=== PATIENT | male | born 1970 | race Caucasian/White ===

== ENCOUNTER → 2021-03-31 09:29 | Outpatient (CLI) | payer BC, SELFPAY ==
[2021-03-31 14:18] LABS: ALB/GLOB Ratio 1.5 RATIO (0.9-2.4); AST(SGOT) 13 U/L (15-37); Alanine Aminotransfer ALT/SGPT 22 U/L (16-61); Alkaline Phosphatase 93 U/L (45-117); Anion Gap 6 (5-15); BUN 13 mg/dL (7-18); BUN/Creat Ratio 13.1 RATIO (10-20); Calcium,Total 8.9 mg/dL (8.5-10.1); Chloride 105 mmol/L (98-107); Cholesterol 174 mg/dL (200); Creatinine, Serum 0.99 mg/dL (0.70-1.30); EST Glomerular Filtration Rate 85 mL/min (>60); Est Glom Filt Rate - Afr Amer 103 mL/min (>60); Globulin 2.7 g/dL (2.2-4.2); Glucose 90 mg/dL (74-106); High Density Lipoprotein 38 mg/dL; Potassium 4.2 mmol/L (3.5-5.1); Protein, Total 6.7 g/dL (6.4-8.2); Sodium Level 142 mmol/L (136-145); Triglycerides 88 mg/dL; Very Low Density Lipoprotein 18 mg/dL (5-40)
== END ==
PROVIDERS: PCP Family Medicine; Referring Provider Family Medicine; Visit Provider Family Medicine
DX: I10 Essential (primary) hypertension (principal)
CPT/HCPCS: 36415; 80053; 80061

== ENCOUNTER → 2022-05-05 | Outpatient (CLI) | payer BC, SELFPAY | END | disposition home or self-care (01) | PROVIDERS: PCP Family Medicine; Visit Provider Family Medicine | DX: U07.1 COVID-19 (principal) | CPT/HCPCS: 87635; U0003; U0005 ==

== ENCOUNTER → 2022-07-10 | Outpatient (CLI) | payer BC, SELFPAY ==
[2022-07-10 11:22] LABS: ALB/GLOB Ratio 1.2 RATIO (0.9-2.4); AST(SGOT) 22 U/L (15-37); Alanine Aminotransfer ALT/SGPT 42 U/L (16-61); Albumin, Serum 3.7 g/dL (3.2-5.0); Alkaline Phosphatase 70 U/L (45-117); Anion Gap 5 (5-15); BUN 12 mg/dL (7-18); BUN/Creat Ratio 11.5 RATIO (10-20); Calcium,Total 8.6 mg/dL (8.5-10.1); Chloride 108 mmol/L (98-107); Cholesterol 186 mg/dL (200); Creatinine, Serum 1.04 mg/dL (0.70-1.30); EST Glomerular Filtration Rate 80 mL/min (>60); Est Glom Filt Rate - Afr Amer 97 mL/min (>60); Globulin 3.1 g/dL (2.2-4.2); Glucose 143 mg/dL (74-106); High Density Lipoprotein 47 mg/dL; PSA,Total - Annual Screen 0.93 ng/mL (0.00-4.00); Protein, Total 6.8 g/dL (6.4-8.2); Sodium Level 139 mmol/L (136-145); Triglycerides 115 mg/dL; Very Low Density Lipoprotein 23 mg/dL (5-40)
== END | disposition home or self-care (01) ==
PROVIDERS: PCP Family Medicine; Referring Provider Family Medicine; Visit Provider Family Medicine
DX: I10 Essential (primary) hypertension (principal); Z12.5 Encounter for screening for malignant neoplasm of prostate
CPT/HCPCS: 36415; 80053; 80061; 84153; G0103

== ENCOUNTER 2022-09-24 06:19 | Day surgery (SDC) | payer BC, SELFPAY ==
[2022-09-24] VITALS (7 sets, daily range): BP systolic 104–133; BP diastolic 66–94; PULSE 68–87; RESP 16–18; TEMP 36.1–36.5; O2SAT 96–98; BMI 34.7
--- NOTE | 2022-09-24 | IMM_PTH ---
PATIENT: LEANDER FOOTE LOC: EN U#:[id number] AGE/SX: 52/M ROOM: RE09/24/[address]: Dr. Floyd Hines MD : 1970 BED: DIS: 09/24/2022 SPEC #: [id number] RECD: 09/25/22 11:34 STATUS: BETO REReji #: [id number] LEATHA: 09/24/22 00:[address]: Floyd Hines DEPT: IMMUNOHISTOCHEMISTRY RECD BY: Haylee Molina ENTERED: 09/25/22 11:35 SP TYPE: IMMUNO OTHR DR: Dr. Deric Shaikh MD Tissues: C - Perianal tissue Procedures: p16 (initial) KI-67 (add) PHYSICIAN & [place] [id number] SPECIMEN INFORMATION: Tissue Source: C ? Perianal lesion biopsy Clinical Info: Screening Specimen Number: [id number] CPT code: 39040, 02107 METHODOLOGY: Deparaffinized sections of prefer/formalin-fixed tissue or PAP/DQ stained slides are incubated with monoclonal/polyclonal antibodies/oligonucleotide probes. Localization is made via biotin free immunoperoxidase method. Appropriate controls are performed and reacted as expected. Results on target cell population are indicated in the following table: RESULTS: ANTIBODY / CLONE RESULT Block C P16 (E6H4) positive, focal, patchy Ki-67 (30-9) positive, low These tests were developed and their performance characteristics determined by [facility]. They may not have been cleared or approved by the U.S. Food and Drug Administration. The FDA has determined that such clearance or approval is not necessary. The above immunohistochemical/dualISH markers are ordered and reviewed by the Pathologist. INTERPRETATION: Josue Perianal lesion, biopsy: Focal viral cytopathic effect present. AM:rachel 09/28/2022
--- NOTE | 2022-09-24 | COLBX_PTH ---
PATIENT: LEANDER FOOTE LOC: EN U#:[id number] AGE/SX: 52/M ROOM: RE09/24/[address]: Dr. Floyd Hines MD : 1970 BED: DIS: 09/24/2022 SPEC #: [id number] RECD: 09/24/22 14:58 STATUS: BETO NURY #: [id number] LEATHA: 09/24/22 00:[address]: Floyd Hines DEPT: SURGICAL PATHOLOGY RECD BY: Demetrio Dash ENTERED: 09/24/22 14:59 SP TYPE: COLON BX OTHR DR: Dr. Deric Shaikh MD Tissues: A - Transverse colon B - Descending colon C - Ileum, NOS Procedures: Surgery Specimen Level IV HEADER OPERATION: Colonoscopy wit biopsy and polypectomy (MAC) PRE-OP DIAGNOSIS: Screening TISSUE SUBMITTED: A ? 105 cm transverse colon polyp, B ? 80 cm descending colon polyp, C ? Perianal lesion biopsy MICROSCOPIC DIAGNOSIS A. Transverse colon polyp at 105 cm, biopsy: Polypoid fragment of benign colonic mucosa. See comment. B. Descending colon polyp at 80 cm, biopsy: Focal hyperplastic change. C. Perianal lesion, biopsy: Consistent with condyloma. See comment. AM:rachel 09/25/2022 COMMENT A. Neither hyperplastic nor adenomatous change is identified. Clinical correlation is suggested. C. Results from immunohistochemistry ([id number]) for surrogate HPV marker (p16) will be reported separately. MICROSCOPIC DESCRIPTION Slides are reviewed. GROSS DESCRIPTION A - Received in fixative is one container labeled with the patient's name and designated transverse colon polyp. The specimen consists of one irregular fragment of light montoya soft tissue that measures 0.6 x 0.3 x 0.1 cm. The specimen is totally submitted in one cassette. B - Received in fixative is one container labeled with the patient's name and designated descending colon 80 cm biopsy. The specimen consists of one irregular fragment of light montoya soft tissue that measures 0.5 x 0.2 x 0.1 cm. The specimen is totally submitted in one cassette. C - Received in fixative is one container labeled with the patient's name and designated perianal lesion biopsy. The specimen consists of multiple irregular fragments of light montoya-pink soft tissue that in aggregate measure 1 x 0.3 x 0.1 cm. The specimen is totally submitted in one cassette. / AM:rachel 09/24/2022 TC: CPT: 55124 x3
[2022-09-24] MEDS: Lactated Ringers 1,000 ML 15 ML IV (07:03)
--- NOTE | 2022-09-24 07:32 | HP.PCM_ITS ---
History and Physical Date of Service:? 08/04/22 MR#: [id number] Acct: [id number] Name:? LEANDER BERNAL Rep #: [id number] : 1970 ? ? Provider: Dr. Floyd Hines MD Age/Sex:? 52/M ? ? Location: [facility] Status: Signed Intake Vital Signs ? 08/04/2209:12 Height 5 ft 11 in Weight: 247 lb D BMI 34.4 BP 131/95 H Blood Pressure Location Rt brachial Position Sitting Respiration 16 Pulse 69 Pulse Source Monitor Temp 97.8 F Temp Source Temporal Pulse Oximetry (%) 98 Oxygen Delivery Method room air Intake Visit Reasons:?SCREENING COLONOSCOPY AND LIPOMA ON NECK Chief Complaint: Colonoscopy and lipoma on neck Clinic Business Manager Required: No Is patient in pain?: No Allergies No Known Allergies Allergy (Unverified 08/04/22 09:13) Medications lisinopril 10 mg tablet 10 mg PO DAILY 08/04/22 [History Confirmed 08/04/22] PFSH Surgical History?(Updated 08/04/22 @ 09:11 by Ana Bennett) History of lithotripsy S/P thyroid surgery Social History?(Updated 08/04/22 @ 09:12 by Ana Bennett) adopted:? Yes Smoking Status:? Never smoker alcohol intake:? current alcohol intake frequency: 0-2 drinks per day substance use type:? does not use HPI HPI HPI: Patient is a 52-year-old male who presents for need to schedule screening colono scopy secondary to age.? They are referred for surgical consultation from Dr. Shaikh.? Patient has not had prior colonoscopy.? Mr. Bernal states that since he was a kid he he has experienced looser stools that then become constipation (he notes that the looser stools are much more frequent than the constipation which she only deals with 1-2 times monthly.? Of this he states there is no normal.? On hearing this history, he has been told by providers in the past that he may have irritable bowel syndrome.? He states he does not recall ever undergoing stool studies or further investigation.? He does communicate that when he has tried to experiment with his diet (he notes that his son is diagnosed with celiac's disease) he has not noticed a change in response to either lower gluten content or restricting dairy.? Patient has no personal history of colon cancer, inflammatory bowel disease, or diverticulitis. They describe their bowel habits as occurring regularly with the consistency noted above.? They have approximately 1-2 per day and spend roughly 10 minutes on the toilet without significant straining.? They have not noticed recent bleeding or dark stools.? They do not regularly take fiber supplements, but states he is making intentional efforts to include more dietary fiber by eating more vegetables than meat.? He states this is also motivated by desire to improve his kidney health and lose some weight.? He has noticed a weight gain of about 20 pounds since 2019 (he notes he initially gained 40 pounds, lost it, then added 20 back).? He attributes this to being more sedentary and enjoying food. Patient has no known family history of colon cancer, inflammatory bowel disease, or diverticulitis, but notes that he is adopted.? ? The patient is not prescribed anticoagulants/blood thinners. Relevant prior abdominal surgical history includes: None applicable Patient does not have a significant history of GERD/heartburn?he states that he had some of the symptoms many years ago when he worked in [employer], but has not noticed them since leaving that field of work. Patient also presents for neck lipoma.? This was first noticed 8 to 10 years ago.? He states that the size of this lipoma has remained relatively constant over the last couple of years.? He communicates that Dr. Shaikh is offered surgical evaluation in the past, but this was declined due to absence of symptoms.? He remarks that in the last year he has felt more cricks in that part of his neck than before and therefore requests evaluation for removal.? He denies any other areas of concern or new growths. ROS General General: Yes weight change; No appetite, fatigue, colon cancer, breast cancer or weakness Additional Details: Weight gain HEENT HEENT: No difficulty swallowing, eye injury, eye surgery, swollen glands or hoarseness Endo Endocrine: No thyroid disease, diabetes mellitus, thyroid cancer, Hair loss, heat intolerance or cold intolerance Skin Skin: No rash or changing moles Breast Breast: No left breast lump, right breast lump, nipple discharge, breast pain, abnormal mammogram, abnormal US or breast enlargement Musc Musculoskeletal: Yes back problems; No arthritis, rheumatoid arthritis, gout or joint pain Cardio Cardiovascular: Yes high blood pressure; No murmur, pacemaker, heart disease, atrial fibrillation, heart attack, heart stent, palpitations, shortness of breat with exertion or chest pain Psych Psychiatric: No depression, anxiety or hearing voices Resp Respiratory: No shortness of breath, Yes sleep apnea, Yes cough, No COPD, No asthma, No emphysema and No wheezing Gastro Gastrointestinal: No abdominal pain, No nausea or vomiting, No diarrhea, No constipation, No blood in stool, No acid reflux, No hemorrhoids, No ulcers, No gallbladder problem and No black,tarry stools [place] Hematologic: No blood thinners, No blood disorders, No bleeding, No anemia and No blood clots Neuro Neurologic: No system reviewed and no additional complaints, except as documented, No as per HPI, No abnormal gait, No abnormal hearing, No abnormal movements, No abnormal speech, No behavioral changes, No burning sensations, No confusion, No convulsions, No disequilibrium, No dizziness, No localized weakness, No frequent falls, No headache(s), No lack of coordination, No loss of vision, No memory loss, No numbness, No other visual disturbances, No radicular pain, No restless legs, No sensory deficit, No syncope, No tingling, No tremor(s), No weakness and No other Exam Const General: cooperative, healthy appearing, comfortable and no acute distress Orientation: alert, awake and oriented x3 Neck Other: Large (estimated 5 to 6 cm in diameter), semimobile subcutaneous mass that is nontender to palpation. Resp Effort & Inspection: normal respiratory effort Auscultation: no rales, no rhonchi and no wheezes Cardio Rate: regular rate Rhythm: regular rhythm Heart Sounds: S1 normal and S2 normal GI Inspection: obesity, no scars and no striae Palpation: soft, no hepatosplenomegaly, no hernias and nontender Assessment and Plan Assessment and Plan (1) Screening for colon cancer: ?Status:?Acute ?Comment: This is a 52-year-old male who is referred for screening colonoscopy given his age.? He reports a lifelong history of alternating between looser stools and constipation.? Subjectively he has been told by past providers this may represent a diagnosis of irritable bowel syndrome, but has not undergone any formal work-up for this issue.? Otherwise denies any acute changes to his GI function and simply presents for a maintenance evaluation.? Procedure was described in detail?including prep and need for a customer service driver.? Patient expresses understanding of all this information. ?Plan: Plan will be to complete colonoscopy on first mutually available date under local MAC.? Pre-procedure prep discussed and paper instructions provided.? Patient is also made aware that he will need to have a customer service driver with him the day of the procedure. (2) Subcutaneous mass of neck: ?Status:?Acute ?Comment: Patient with a moderately large subcutaneous mass on the right posterior aspect of his neck.? Is largely asymptomatic and has remained relatively stable in size, but he notes some occasional discomfort in the morning after sleeping on that side.? Therefore, he requests removal.? By exam, this appears to represent a lipoma.? Given its size, I recommend removal in the operating room for the benefit of some sedation to enhance his comfort. ?Plan: Excision of subcutaneous mass under local MAC.? Patient states that he will be traveling to [place] August 18 through 2021.? Given the current proximity to this travel time, we will plan to postpone any intervention until after he returns. I have examined the patient and the H&P has been reviewed. There are no clinical changes since date of exam. He confirms that he completed his bowel prep successfully and that his output is now clear. Neither he nor spouse have any questions regarding today's procedure. Plan to proceed to the endoscopy suite for screening colonoscopy under local MAC as described above.
--- NOTE | 2022-09-24 08:34 | OP.COLON_ITS ---
Patient Name: Ken Bernal Procedure Date: 09/24/2022 7:27 AM Date of : 1970 Age: 52 Procedure: Colonoscopy Indications: Screening for colorectal malignant neoplasm Providers: Floyd Hines MD Medicines: Monitored Anesthesia Care Patient Profile: Refer to note in patient chart for documentation of history and physical. Last Colonoscopy: none. The patient's first colonoscopy is today. Complications: No immediate complications. Estimated blood loss: None. Procedure: Pre-Anesthesia Assessment: - The heart rate, respiratory rate, oxygen saturations, blood pressure, adequacy of pulmonary ventilation, and response to care were monitored throughout the procedure. After I obtained informed consent, the scope was passed under direct vision. Throughout the procedure, the patient's blood pressure, pulse, and oxygen saturations were monitored continuously. The colonoscope was introduced through the anus and advanced to the cecum, identified by appendiceal orifice and ileocecal valve. The appendiceal orifice was photographed. The colonoscopy was performed without difficulty. The patient tolerated the procedure well. The quality of the bowel preparation was adequate to identify polyps. Scope In: 7:39:45 AM Scope Withdrawal Time 0 hours 34 minutes 24 seconds Scope Out: 8:22:46 AM Total Procedure Duration Time 0 hours 43 minutes 1 second Findings: Two semi-sessile polyps were found in the descending colon and transverse colon. The polyps were 3 to 5 mm in size. Biopsies were taken with a cold forceps for histology. Estimated blood loss was minimal. Localized pseudopolyps were found at the anus. The polyp was removed with a hot snare. Resection and retrieval were complete. The perianal and digital rectal examinations were normal. Pertinent negatives include normal sphincter tone. Impression: - Two 3 to 5 mm polyps in the descending colon and in the transverse colon. Biopsied. - Pseudopolyps at the anus. Resected and retrieved. Recommendation: - Discharge patient to home (via wheelchair). - Resume regular diet today. - Continue present medications. - Await pathology results. - Repeat colonoscopy date to be determined after pending pathology results are reviewed for surveillance based on pathology results. - Telephone my office for pathology results in 1 week. Procedure Code(s): --- Professional --- 85415, Colonoscopy, flexible; with removal of tumor(s), polyp(s), or other lesion(s) by snare technique 05957, 59, Colonoscopy, flexible; with biopsy, single or multiple Diagnosis Code(s): --- Professional --- Z12.11, Encounter for screening for malignant neoplasm of colon D12.4, Benign neoplasm of descending colon D12.3, Benign neoplasm of transverse colon (hepatic flexure or splenic flexure) K51.40, Inflammatory polyps of colon without complications CPT copyright 2017 [employer]. All rights reserved. The codes documented in this report are preliminary and upon cpc coder review may be revised to meet current compliance requirements. Floyd Hines MD 09/24/2022 8:34:06 AM This report has been signed electronically. Number of Addenda: 0 Note Initiated On: 09/24/2022 7:27 AM
--- NOTE | 2022-09-24 08:35 | OP.CCLET_ITS ---
09/24/2022 Eliel Shaikh [address] [place] [address] Re : Colonoscopy procedure for Ken Bernal Dear Dr. Shaikh This procedure was performed on August. My impressions and recommendations are as follows: Impressions : - Two 3 to 5 mm polyps in the descending colon and in the transverse colon. Biopsied. - Pseudopolyps at the anus. Resected and retrieved. Recommendations : - Discharge patient to home (via wheelchair). - Resume regular diet today. - Continue present medications. - Await pathology results. - Repeat colonoscopy date to be determined after pending pathology results are reviewed for surveillance based on pathology results. - Telephone my office for pathology results in 1 week. My findings are described in the full procedure note, which is enclosed. If I can be of further assistance, please feel free to contact me at Doctor phone number(s): , Work: . Sincerely, Floyd Hines MD 09/24/2022 8:34:06 AM This report has been signed electronically.
== END 2022-09-24 09:08 | disposition home or self-care (01) ==
LOC: EN 06:20 → AC 06:23
PROVIDERS: PCP Family Medicine; Referring Provider Family Medicine; Visit Provider Surgery
PROC: 0DJD8ZZ Inspection of Lower Intestinal Tract, Via Natural or Artificial Opening Endoscopic (ICD-10-PCS; CPT 45378; principal; 2022-09-24 07:25)
DX: Z12.11 Encounter for screening for malignant neoplasm of colon (principal); K51.40 Inflammatory polyps of colon without complications; R22.1 Localized swelling, mass and lump, neck; D12.3 Benign neoplasm of transverse colon; D12.4 Benign neoplasm of descending colon
CPT/HCPCS: 45380; 45385; 88305; 88341; 88342; J7120

== ENCOUNTER 2022-11-18 11:50 | Day surgery (SDC) | payer BC, SELFPAY ==
[2022-11-18] MEDS: Lactated Ringers 1,000 ML 15 ML IV (12:28)
[2022-11-18 12:29] VITALS: BP 130/80; PULSE 84; RESP 18; TEMP 36.4; O2SAT 98; BMI 35.8
--- NOTE | 2022-11-18 12:31 | HP.PCM_ITS ---
History and Physical Date of Service:? 08/04/22 MR#: [id number] Acct: [id number] Name:? LEANDER BERNAL Rep #: [id number] : 1970 ? ? Provider: Dr. Floyd Hines MD Age/Sex:? 52/M ? ? Location: [facility] Status: Signed Intake Vital Signs ? 08/04/2209:12 Height 5 ft 11 in Weight: 247 lb D BMI 34.4 BP 131/95 H Blood Pressure Location Rt brachial Position Sitting Respiration 16 Pulse 69 Pulse Source Monitor Temp 97.8 F Temp Source Temporal Pulse Oximetry (%) 98 Oxygen Delivery Method room air Intake Visit Reasons:?SCREENING COLONOSCOPY AND LIPOMA ON NECK Chief Complaint: Colonoscopy and lipoma on neck Vulcan Crewmember Required: No Is patient in pain?: No Allergies No Known Allergies Allergy (Unverified 08/04/22 09:13) Medications lisinopril 10 mg tablet 10 mg PO DAILY 08/04/22 [History Confirmed 08/04/22] PFSH Surgical History?(Updated 08/04/22 @ 09:11 by Ana Bennett) History of lithotripsy S/P thyroid surgery Social History?(Updated 08/04/22 @ 09:12 by Ana Bennett) adopted:? Yes Smoking Status:? Never smoker alcohol intake:? current alcohol intake frequency: 0-2 drinks per day substance use type:? does not use HPI HPI HPI: Patient is a 52-year-old male who presents for need to schedule screening colono scopy secondary to age.? They are referred for surgical consultation from Dr. Shaikh.? Patient has not had prior colonoscopy.? Mr. Bernal states that since he was a kid he he has experienced looser stools that then become constipation (he notes that the looser stools are much more frequent than the constipation which she only deals with 1-2 times monthly.? Of this he states there is no normal.? On hearing this history, he has been told by providers in the past that he may have irritable bowel syndrome.? He states he does not recall ever undergoing stool studies or further investigation.? He does communicate that when he has tried to experiment with his diet (he notes that his son is diagnosed with celiac's disease) he has not noticed a change in response to either lower gluten content or restricting dairy.? Patient has no personal history of colon cancer, inflammatory bowel disease, or diverticulitis. They describe their bowel habits as occurring regularly with the consistency noted above.? They have approximately 1-2 per day and spend roughly 10 minutes on the toilet without significant straining.? They have not noticed recent bleeding or dark stools.? They do not regularly take fiber supplements, but states he is making intentional efforts to include more dietary fiber by eating more vegetables than meat.? He states this is also motivated by desire to improve his kidney health and lose some weight.? He has noticed a weight gain of about 20 pounds since 2019 (he notes he initially gained 40 pounds, lost it, then added 20 back).? He attributes this to being more sedentary and enjoying food. Patient has no known family history of colon cancer, inflammatory bowel disease, or diverticulitis, but notes that he is adopted.? ? The patient is not prescribed anticoagulants/blood thinners. Relevant prior abdominal surgical history includes: None applicable Patient does not have a significant history of GERD/heartburn?he states that he had some of the symptoms many years ago when he worked in [employer], but has not noticed them since leaving that field of work. Patient also presents for neck lipoma.? This was first noticed 8 to 10 years ago.? He states that the size of this lipoma has remained relatively constant over the last couple of years.? He communicates that Dr. Shaikh is offered surgical evaluation in the past, but this was declined due to absence of symptoms.? He remarks that in the last year he has felt more cricks in that part of his neck than before and therefore requests evaluation for removal.? He denies any other areas of concern or new growths. ROS General General: Yes weight change; No appetite, fatigue, colon cancer, breast cancer or weakness Additional Details: Weight gain HEENT HEENT: No difficulty swallowing, eye injury, eye surgery, swollen glands or hoarseness Endo Endocrine: No thyroid disease, diabetes mellitus, thyroid cancer, Hair loss, heat intolerance or cold intolerance Skin Skin: No rash or changing moles Breast Breast: No left breast lump, right breast lump, nipple discharge, breast pain, abnormal mammogram, abnormal US or breast enlargement Musc Musculoskeletal: Yes back problems; No arthritis, rheumatoid arthritis, gout or joint pain Cardio Cardiovascular: Yes high blood pressure; No murmur, pacemaker, heart disease, atrial fibrillation, heart attack, heart stent, palpitations, shortness of breat with exertion or chest pain Psych Psychiatric: No depression, anxiety or hearing voices Resp Respiratory: No shortness of breath, Yes sleep apnea, Yes cough, No COPD, No asthma, No emphysema and No wheezing Gastro Gastrointestinal: No abdominal pain, No nausea or vomiting, No diarrhea, No constipation, No blood in stool, No acid reflux, No hemorrhoids, No ulcers, No gallbladder problem and No black,tarry stools [place] Hematologic: No blood thinners, No blood disorders, No bleeding, No anemia and No blood clots Neuro Neurologic: No system reviewed and no additional complaints, except as documented, No as per HPI, No abnormal gait, No abnormal hearing, No abnormal movements, No abnormal speech, No behavioral changes, No burning sensations, No confusion, No convulsions, No disequilibrium, No dizziness, No localized weakness, No frequent falls, No headache(s), No lack of coordination, No loss of vision, No memory loss, No numbness, No other visual disturbances, No radicular pain, No restless legs, No sensory deficit, No syncope, No tingling, No tremor(s), No weakness and No other Exam Const General: cooperative, healthy appearing, comfortable and no acute distress Orientation: alert, awake and oriented x3 Neck Other: Large (estimated 5 to 6 cm in diameter), semimobile subcutaneous mass that is nontender to palpation. Resp Effort & Inspection: normal respiratory effort Auscultation: no rales, no rhonchi and no wheezes Cardio Rate: regular rate Rhythm: regular rhythm Heart Sounds: S1 normal and S2 normal GI Inspection: obesity, no scars and no striae Palpation: soft, no hepatosplenomegaly, no hernias and nontender Assessment and Plan Assessment and Plan (1) Screening for colon cancer: ?Status:?Acute ?Comment: This is a 52-year-old male who is referred for screening colonoscopy given his age.? He reports a lifelong history of alternating between looser stools and constipation.? Subjectively he has been told by past providers this may represent a diagnosis of irritable bowel syndrome, but has not undergone any formal work-up for this issue.? Otherwise denies any acute changes to his GI function and simply presents for a maintenance evaluation.? Procedure was described in detail?including prep and need for a driver material handler.? Patient expresses understanding of all this information. ?Plan: Plan will be to complete colonoscopy on first mutually available date under local MAC.? Pre-procedure prep discussed and paper instructions provided.? Patient is also made aware that he will need to have a driver material handler with him the day of the procedure. (2) Subcutaneous mass of neck: ?Status:?Acute ?Comment: Patient with a moderately large subcutaneous mass on the right posterior aspect of his neck.? Is largely asymptomatic and has remained relatively stable in size, but he notes some occasional discomfort in the morning after sleeping on that side.? Therefore, he requests removal.? By exam, this appears to represent a lipoma.? Given its size, I recommend removal in the operating room for the benefit of some sedation to enhance his comfort. ?Plan: Excision of subcutaneous mass under local MAC.? Patient states that he will be traveling to [place] August 18 through 2021.? Given the current proximity to this travel time, we will plan to postpone any intervention until after he returns. I have examined the patient and the H&P has been reviewed. There are no clinical changes since date of exam. He confirms that the right subcutaneous posterior neck mass has remained stable in size and has not exhibited any symptoms. He is just eager to have it removed after we have required several rescheduling's of today's procedure. We did review post procedure wound care expectations and follow-up. All questions were taken from patient and the spouse. Plan to proceed to the operating room for excision of right posterior neck lipoma under MAC as described above.
[2022-11-18] MEDS: Cefazolin 2 GM in 0.9% Normal Saline 100 ML IV (13:05)
--- NOTE | 2022-11-18 13:20 | LIP_PTH ---
PATIENT: LEANDER FOOTE LOC: [facility] [place] U#:[id number] AGE/SX: 52/M ROOM: RE11/18/[address]: Dr. Floyd Hines MD : 1970 BED: DIS: 11/18/2022 SPEC #: [id number] RECD: 11/18/22 16:36 STATUS: BETO NURY #: [id number] LEATHA: 11/18/22 13:[address]: Floyd Hines DEPT: SURGICAL PATHOLOGY RECD BY: Arabella Chambers ENTERED: 11/19/22 12:29 SP TYPE: LIPOMA OTHR DR: Dr. Deric Shaikh MD Tissues: Soft tissues, NOS Procedures: Surgery Specimen Level III HEADER OPERATION: Excision lipoma, posterior neck PRE-OP DIAGNOSIS: Right posterior neck lipoma TISSUE SUBMITTED: Right posterior neck lipoma MICROSCOPIC DIAGNOSIS Right posterior neck lipoma, excision: Consistent with fibrolipoma. SJ:rachel 11/20/2022 MICROSCOPIC DESCRIPTION Slides are reviewed. GROSS DESCRIPTION Received in fixative is one container labeled with the patient's name and designated right posterior neck lipoma. The specimen consists of a lobulated piece of yellow adipose tissue measuring 5.5 x 4 x 2.5 cm. Sections reveal yellow adipose cut surfaces without area of hemorrhage, necrosis or cystic degeneration. Co Founder & Ceo sections are submitted in six cassettes. / SJ:rg 11/19/2022 TC:1 CPT: 76982
--- NOTE | 2022-11-18 14:44 | OP.PCM_ITS ---
Report of Operation Date of Procedure: 11/18/22 Pre-Operative Diagnosis: Right posterior neck lipoma Post-Operative Diagnosis: Same Surgery/Procedure Performed:: Excision of right posterior neck lipoma under local MAC Description of Surgical Findings:: ? Neck lipoma with multiple adhesions to surrounding muscle and subfascial component to deep aspect Surgeon: Floyd Hines mechanical maintenance: Lynne Dale Anesthesiologist: Jimmy Malone Specimen's removed: Right posterior neck lipoma Estimated Blood Loss (mL): 50 Description of Procedure: After appropriate identification the preoperative holding area patient was brought to the operating room where he was positioned in a left lateral decubitus position. There he was administered a local MAC. Preoperative antibiotics were infused. His posterior neck was prepped and draped in usual sterile fashion. A formal timeout followed to confirm both patient and procedure. I then made a transverse incision 4.5 cm long along the mid aspect of the patient's lipomatous mass. This was carried deeply through the tissue with use of electrocautery to maintain hemostasis as we proceeded. I then visualized the lipomatous subcutaneous mass and used a combination of sharp and blunt dissection to free this mass from the surrounding soft tissue. Selective electrocautery was used to maintain hemostasis. In addition to the MAC anesthetic by anesthesia, local anesthetic was used to try to maintain patient's comfort with a total volume of 27 mL 0.25% bupivacaine plain. As the lipomatous mass was being elevated from the deeper structures the majority of the mass resided above the fascia, however there was a small tail that did penetrate the fascia and was bluntly teased away from these deeper fibers. Mass was then completely extirpated and passed off the operative field for pathology. The resulting cavity was inspected for hemostasis and was found to be largely intact aside from a few isolated skin bleeders which were promptly addressed with electrocautery. The cavity was then closed in layers to plicate the space deeply and approximate the deep dermal tissues using 2-0 and 3-0 Vicryl, respectively. Lastly a third layer was performed in a subcuticular fashion using 4-0 Monocryl. Steri-Strips and dressing were applied and the patient's sedation was lightened and he was transferred to the PACU bed for his ongoing care. Complications None
[2022-11-18] MEDS: Bupivacaine 0.25% 30 ML Vial (14:50)
--- NOTE | 2022-11-18 14:50 | DCINST_ITS ---
Discharge Instructions Diet Discharge Diet: No restrictions Activity Discharge Activity: May Not Drive (No driving while using narcotic pain medication or if it is difficult to turn head to check blind spots) May shower in (days): 2 Ice area for (Minutes): 20 Dressing / Incision Call your doctor if your incision/area has: Continuous Slow Oozing, Sudden Increased Bleeding, Increased Pain/ Swelling, Increased Redness and Foul Smelling Discharge Call your doctor if you observe: Fever of 101 or Higher Remove Dressing in: 2 days Cleanse incision/area with: Soap & Water Follow Up Care Please Follow Up With: Floyd Hines MD When: 7 days postop Test Results: Test results from this visit will be discussed in further detail at your follow- up appointment, if applicable. Discharge Plan Admission Primary Reason for Your Visit: Removal of right posterior neck lipoma Attending Provider: Floyd Hines Primary Care Provider: Eliel Shaikh Discharge Orders/Prescriptions Prescriptions: New oxycodone 5 mg tablet 5 mg PO Q6H PRN (Reason: pain) 5 Days Qty: 14 0RF Continued lisinopril 10 mg tablet 10 mg PO QHS Referrals / Follow Up: Eliel Shaikh MD [Primary Care Provider] - Disposition Disposition (needs filled in before D/C Order can be placed): Home, Self Care
[2022-11-18 15:03] VITALS: BP 128/74; BP 130/80; PULSE 82; RESP 18; TEMP 36.1; O2SAT 95
[2022-11-18 15:05] VITALS: BP 105/65; BP 130/80; PULSE 77; RESP 18; O2SAT 95
[2022-11-18 15:11] VITALS: BP 102/61; BP 130/80; PULSE 76; RESP 18; O2SAT 95
[2022-11-18 15:24] VITALS: BP 102/74; BP 130/80; PULSE 72; RESP 18; TEMP 35.8; O2SAT 94
[2022-11-18 16:10] VITALS: BP 123/89; BP 130/80; PULSE 75; RESP 16; TEMP 36.6; O2SAT 96
== END 2022-11-18 16:13 | disposition home or self-care (01) ==
LOC: SDC 11:51 → AC 11:52
PROVIDERS: PCP Family Medicine; Referring Provider Surgery; Visit Provider Surgery
PROC: (CPT 38500; principal; 2022-11-18 13:05)
DX: D17.0 Benign lipomatous neoplasm of skin and subcutaneous tissue of head, face and neck (principal); I10 Essential (primary) hypertension; R05.3 Chronic cough; G47.30 Sleep apnea, unspecified
CPT/HCPCS: 21556; 88304; J2405

== ENCOUNTER 2022-12-12 13:16 | Emergency (ER) | payer BC, SELFPAY ==
[2022-12-12 13:17] VITALS: BP 155/105; PULSE 76; RESP 15; TEMP 37; O2SAT 99; BMI 36.1
--- NOTE | 2022-12-12 13:27 | CT_ITS ---
STUDY: CT ABDOMEN AND PELVIS WITHOUT CONTRAST REASON FOR EXAM: Male, 52 years old. Pain RADIATION DOSAGE (If Supplied By Facility): CTDIvol = ( 22.6 ) mGy, DLP = ( 1208.46 ) mGycm TECHNIQUE: Transaxial images were obtained from the dome of the diaphragm to the symphysis pubis without oral contrast, and without intravenous contrast. Sagittal and coronal images were reconstructed. Individualized dose optimization techniques were used for this CT. COMPARISON: None. FINDINGS: The visualized lung bases are unremarkable. The visualized portions of the heart are within normal limits. There is decreased attenuation of the liver consistent with steatosis. Normal gallbladder and extrahepatic biliary system. Normal spleen. 2 cm subtle area of decreased attenuation within the neck of the pancreas which may represent a pancreatic mass. Follow-up pancreas protocol CT is recommended. Normal bilateral adrenal glands. Multiple nonobstructing stones in the right kidney. 3 mm obstructing stone at the right ureterovesical junction with mild ureteral dilatation and hydronephrosis. Normal left kidney. Normal visualized stomach. Normal small intestine. Normal colon. The appendix is visualized and appears normal. Normal abdominal aorta. Normal inferior vena cava. Normal retroperitoneum. Normal urinary bladder. Bilateral inguinal hernias containing fat. Normal osseous structures. CT/Abdomen/Pelvis without Cont IMPRESSION: 1. 3 mm obstructing stone at the right ureterovesical junction with mild ureteral dilatation and hydronephrosis. 2. Fatty infiltration of the liver. 3. Questionable mass in the neck of the pancreas and correlation with follow-up pancreas protocol CT is recommended. Electronically Signed: Erik Lao MD at 14:16 EST ,
--- NOTE | 2022-12-12 13:28 | EDS_ITS ---
HPI History of Present Illness Chief Complaint: Flank Pain Detail of Chief Complaint: Right flank pain Informant: patient Onset/Context/Timing Current Severity: 05/08 Narrative Narrative: Patient presents to the emergency department with a chief complaint of right- sided flank pain that started this morning and initially was mild. Around noon he started having severe pain to the right side that radiates to the front of the abdomen and anterior right thigh. Patient states that he has history of kidney stones and feels like he may be passing a stone. Patient states that he will occasionally pass some small stones on his own but has not had to have any type of intervention for kidney stone for over 10 years. Patient denies any fevers. He denies urinary symptoms. He denies hematuria. Patient took an oxycodone at home and currently rates his pain a 6 out of 10. Prior similar symptoms: Yes PFSH PFSH Medical History Alcohol use Chronic cough Current nicotine use Hypertension Kidney stones Wears glasses Home Medications lisinopril 10 mg tablet 10 mg PO QHS 08/04/22 [History Last Taken 11/17/22 23:55] oxycodone 5 mg tablet 5 mg PO Q6H PRN pain 5 days #14 tabs 11/18/22 [Rx Last Taken Unknown] Allergy/AdvReac Type Severity Reaction Status Date / Time No Known Allergies Allergy Verified 12/12/22 13:19 Surgical History History of colonoscopy History of lithotripsy S/P thyroid surgery Social History adopted: Yes Smoking Status: Current every day smoker tobacco type: cigars and smokeless tobacco alcohol intake: current alcohol intake frequency: 0-2 drinks per day substance use type: does not use ROS ROS ED Review of Systems ROS Unobtainable: other Constitutional Constitutional ED: Reports lethargy; Denies chills, fever(s), sweats or weight loss Eyes Eyes: Denies blurry vision, change in vision or diplopia ENT ENT ED: Denies rhinorrhea or sore throat Cardiovascular Cardiovascular: Denies chest pain, orthopnea or racing heartbeat Respiratory/Chest Respiratory/Chest: Denies cough, dyspnea, dyspnea on exertion, orthopnea or sputum Gastrointestinal Gastrointestinal: Reports abdominal pain and nausea; Denies diarrhea or vomiting Genitourinary Genitourinary ED: Denies dysuria, hematuria or urinary frequency Musculoskeletal Musculoskeletal: Reports back pain; Denies arthralgias, myalgias or neck pain Integumentary Denies abscess, Abrasions or rash Neurologic Neurologic: Denies headache(s) or weakness Psychiatric Psychiatric: Denies anxiety, depression or suicidal thoughts Endocrine Endocrinology: Denies polydipsia, polyphagia or polyuria Hematologic/Lymphatic Hematologic/Lymphatic: Denies easy bleeding, easy bruising or lymphadenopathy Allergic/Immunologic Allergic/Immunologic ED: Denies mouth swelling, tongue swelling or urticaria EXAM Physical Exam Const Vital Signs: 12/12/22 13:17 Temperature 98.6 F Temperature Source Temporal Pulse Rate 76 Respiratory Rate 15 Blood Pressure 155/105 H Blood Pressure Mean 121 Pulse Ox 99 Oxygen Delivery Method Room Air Positive well nourished and well developed General Appearance ED: well developed and NAD HEENT Reports TM's clear and moist mucous membranes normocephalic and atraumatic; Negative for trauma or tenderness Tympanic Membrane ED: Yes TM's clear Eyes PERRL and EOMs intact bilaterally General Eye ED: Negative for pale conjunctiva or scleral icterus Neck no lymphadenopathy, supple and no JVD General: Negative for tenderness Chest Wall inspection of chest normal and palpation of chest normal Chest: Negative for tenderness Resp normal respiratory effort and clear to auscultation bilaterally Effort and Inspection: Negative for respiratory distress or pain with movement Auscultation: Negative for rhonchi, wheezes or diminished lung sounds Cardio regular rate, regular rhythm, S1 normal heart sound, S2 normal heart sound and no murmurs Peripheral Pulses: pulses 2+ throughout GI normal to inspection, nondistended, normoactive bowel sounds, soft to palpation, non-tender, non-distended and no masses Back/Spine no thoracic nor lumbar tenderness Back/Spine Narrative: Patient has CVA tenderness on the right. Extremity normal to inspection General Extremety ED: Negative for edema General Extremity: Negative for edema Neuro oriented x3, CN's II-XII intact bilaterally, no sensory deficits noted and gait normal Sensorium / Orientation: awake, alert, oriented to person, oriented to place and oriented to time Motor Exam: strength 5/5 throughout and strength abnormal Psych mental status grossly normal Skin no rashes or lesions noted and no wounds MDM MDM MDM Narrative Medical decision making narrative: IV line established on arrival. Patient was ordered Toradol, Zofran, and 4 mg of morphine. In the differential would be kidney stone versus musculoskeletal back pain versus less likely AAA. Suspicion for UTI low. Patient had lab work ordered as well as urinalysis and a CT of the abdomen pelvis without contrast. Lab work-up unremarkable. Urinalysis showed 25-50 WBCs but no bacteria and negative for nitrites. CT scan did confirm a 3 mm obstructing stone at the right UVJ with mild ureteral dilatation. CT also noted concern for pancreatic neck mass and recommended dedicated CT imaging of the pancreas to evaluate further. I did obtain a CT scan of the pancreas with IV contrast which radiology then subsequently read as normal. While in the department the patient did pass his kidney stone. Patient is currently pain-free and feeling well. Patient will be discharged to home with referral to urology for follow-up. Lab Data Attestation: I reviewed the patient's lab results. Labs: Laboratory Results - last 24 hr 12/12/22 12/12/22 12/12/22 13:35 13:35 14:33 WBC 5.0 RBC 5.44 Hgb 15.8 Hct 47.3 MCV 86.9 MCH 29.0 MCHC 33.4 RDW Std Deviation 40.2 RDW Coeff of Romina 12.8 Plt Count 176 MPV 11.3 Immature Gran % (Auto) 0.400 Neut % (Auto) 69.3 Lymph % (Auto) 20.0 [place] % (Auto) 8.3 Eos % (Auto) 1.0 Baso % (Auto) 1.0 Absolute Neuts (auto) 3.4 Absolute Lymphs (auto) 0.99 Nucleated RBC % 0 Sodium 138 Potassium 3.8 Chloride 105 Carbon Dioxide 28.0 Anion Gap 5 BUN 10 Creatinine 0.97 Estim Creat Clear Calc 91.11 Est GFR (MDRD) Af Amer 106 Est GFR (MDRD) Non-Af 87 BUN/Creatinine Ratio 10.3 Glucose 126 H Calcium 9.0 Urine Color Yellow Urine Clarity Clear Urine pH 7.0 Ur Specific Lyle 1.010 Urine Protein 15 H Urine Glucose (UA) Normal Urine Ketones Negative Urine Occult Blood 150 H Urine Nitrite Negative Urine Bilirubin Negative Urine Urobilinogen Normal Ur Leukocyte Esterase 100 H Urine RBC 0-5 SEEN Urine WBC 25-50 SEEN Ur Squamous Epith Cells 0 SEEN Urine Bacteria 0 SEEN Urine Mucus 0 SEEN Radiography Diagnostic Testing: Clinical Impression(s) from Imaging Studies Abdomen/Pelvis CT 12/12/22 13:27 IMPRESSION: 1. 3 mm obstructing stone at the right ureterovesical junction with mild ureteral dilatation and hydronephrosis. 2. Fatty infiltration of the liver. 3. Questionable mass in the neck of the pancreas and correlation with follow-up pancreas protocol CT is recommended. Electronically Signed: Erik Lao MD at 14:16 EST Reading Location ID and State: [id number] / [employer] Tel , Service support , Abdomen CT 12/12/22 14:53 IMPRESSION: 1. Contrast enhanced images do not confirm pancreatic mass as suggested on prior CT. 2. Multiple nonobstructing right renal stones with mild hydronephrosis as seen earlier. Electronically Signed: Erik Lao MD at 16:03 EST Reading Location ID and State: [id number] / [employer] Tel , Service support , Discharge Plan Triage Chief Complaint: Flank Pain ED Provider: Eri Jarrett Dx/Rx/DC Orders Clinical Impression: Urolithiasis Instructions: ED Kidney Stone w/ Colic Prescriptions: No Action lisinopril 10 mg tablet 10 mg PO QHS oxycodone 5 mg tablet 5 mg PO Q6H PRN (Reason: pain) 5 Days Qty: 14 0RF Primary Care Provider: Eliel Shaikh Referrals: Eliel Shaikh MD [Primary Care Provider] - Yung Spencer MD [Med Staff - Active Staff] - As Needed Disposition Disposition: Home, Self Care
[2022-12-12] MEDS: Ketorolac 15 MG/ML Vial IV (13:35)
[2022-12-12] MEDS: Ondansetron 4 MG/2 ML Vial IV (13:35)
[2022-12-12] MEDS: Morphine 4 MG/ML Syringe IV (13:36)
[2022-12-12] MEDS: 0.9% Normal Saline 1,000 ML 125 ML IV (13:37)
[2022-12-12 13:43] LABS: Absolute Lymphocyte Count 0.99 X10^3/uL (0.83-4.51); Absolute Neutrophil Count 3.4 X10^3/uL (2.0-7.7); Basophil# 0.05 X10^3/uL; Eosinophil# 0.05 X10^3/uL; Hematocrit 47.3 % (40-54); Hemoglobin 15.8 g/dL (13.0-16.5); Lymphocyte # 0.99 X10^3/ul (0.83-4.51); Mean Corp Hgb Conc 33.4 g/dL (32-36); Mean Corpuscular Volume 86.9 fL (80-94); Mean Platelet Vol. 11.3 fl (6.2-12.0); Monocyte# 0.41 X10^3/uL; Monocyte% 8.3 % (0-10); NRBC Flagged by Analyzer 0 % (0-5); Neutrophil # 3.44 X10^3/uL (2.7-7.7); Neutrophil % 69.3 % (47-70); Platelet Count 176 K/mm3 (150-450); RBC Distribution Width CV 12.8 % (11.6-14.6); RBC Distribution Width SD 40.2 fl (35.1-43.9); Red Blood Count 5.44 M/mm3 (4.6-6.2)
[2022-12-12 13:55] LABS: Anion Gap 5 (5-15); BUN 10 mg/dL (7-18); BUN/Creat Ratio 10.3 RATIO (10-20); Chloride 105 mmol/L (98-107); Creatinine, Serum 0.97 mg/dL (0.70-1.30); EST Glomerular Filtration Rate 87 mL/min (>60); Est Glom Filt Rate - Afr Amer 106 mL/min (>60); Estimated Creatinine Clearance 91.11 ml/min; Glucose 126 mg/dL (74-106); Potassium 3.8 mmol/L (3.5-5.1); Sodium Level 138 mmol/L (136-145)
[2022-12-12 14:43] LABS: Bacteria 0 SEEN /hpf (None Seen); Color, Urine Yellow (Yellow); Glucose, Dipstick Normal (Normal); Ketone-Dipstick Negative (Negative); Leukocyte Esterase-Dipstick 100 /ul (Negative); Mucous, Urine 0 SEEN /hpf (<or=2+); Nitrite-Dipstick Negative (Negative); Occult Blood-Urine 150 /ul (Negative); Protein-Dipstick 15 mg/dl (Negative); Squamous Epithelial Cells - UA 0 SEEN /hpf (0-5); Urine Bilirubin Dipstick Negative (Negative); Urine Clarity Clear (Clear); Urine Urobilinogen Normal (Normal)
--- NOTE | 2022-12-12 14:53 | CT_ITS ---
STUDY: CT ABDOMEN WITH AND WITHOUT CONTRAST REASON FOR EXAM: Male, 52 years old. PAIN -- PANCREAS PROTOCOL RADIATION DOSAGE (If Supplied By Facility): CTDIvol = ( 25.55 ) mGy, DLP = ( 2005.68 ) mGycm TECHNIQUE: Transaxial images were obtained pre and post I.V. administration of IV 100mL Isovue-370, and oral contrast. Sagittal and coronal images were reconstructed. Individualized dose optimization techniques were used for this CT. COMPARISON: Earlier today FINDINGS: The visualized lung bases are unremarkable. The visualized portions of the heart are within normal limits. There is decreased attenuation of the liver consistent with steatosis. Normal gallbladder and extrahepatic biliary system. Normal spleen. Normal pancreas. Contrast enhanced images do not confirm a mass in the neck of the pancreas. Normal bilateral adrenal glands. Multiple nonobstructing right renal stones. Normal left kidney. Normal visualized stomach. Normal small intestine. Normal colon. The appendix is visualized and appears normal. Normal abdominal aorta. Normal inferior vena cava. Normal retroperitoneum. Normal abdominal wall. Normal osseous structures. CT/Abdomen W/WO IV Contrast IMPRESSION: 1. Contrast enhanced images do not confirm pancreatic mass as suggested on prior CT. 2. Multiple nonobstructing right renal stones with mild hydronephrosis as seen earlier. Electronically Signed: Erik Lao MD at 16:03 EST ,
[2022-12-12 14:59] LABS: Red Blood Cells-Urine 0-5 SEEN /hpf (0-5); White Blood Cells 25-50 SEEN /hpf (0-5)
[2022-12-12 16:32] VITALS: BP 134/69; PULSE 82; RESP 15; O2SAT 98
== END 2022-12-12 16:34 | disposition home or self-care (01) ==
PROVIDERS: Emergency Provider Emergency Medicine; PCP Family Medicine; Visit Provider Emergency Medicine
DX: N13.2 Hydronephrosis with renal and ureteral calculous obstruction (principal); R10.9 Unspecified abdominal pain; I10 Essential (primary) hypertension; F17.220 Nicotine dependence, chewing tobacco, uncomplicated
CPT/HCPCS: 74170; 74176; 80048; 81001; 85025; 99283; Q9967; A4216; J2405

== ENCOUNTER → 2023-07-20 | Outpatient (CLI) | payer BC, SELFPAY ==
[2023-07-20 10:21] LABS: ALB/GLOB Ratio 1.1 RATIO (0.9-2.4); AST(SGOT) 27 U/L (15-37); Alanine Aminotransfer ALT/SGPT 42 U/L (16-61); Albumin, Serum 3.6 g/dL (3.2-5.0); Alkaline Phosphatase 71 U/L (45-117); Anion Gap 7 (5-15); BUN 9 mg/dL (7-18); BUN/Creat Ratio 10.6 RATIO (10-20); Calcium,Total 8.5 mg/dL (8.5-10.1); Chloride 109 mmol/L (98-107); Cholesterol 195 mg/dL (200); Creatinine, Serum 0.85 mg/dL (0.70-1.30); EST Glomerular Filtration Rate 101 mL/min (>60); Est Glom Filt Rate - Afr Amer 122 mL/min (>60); Globulin 3.2 g/dL (2.2-4.2); Glucose 129 mg/dL (74-106); High Density Lipoprotein 46 mg/dL; PSA,Total - Annual Screen 1.03 ng/mL (0.00-4.00); Potassium 4.1 mmol/L (3.5-5.1); Protein, Total 6.8 g/dL (6.4-8.2); Sodium Level 140 mmol/L (136-145); Triglycerides 101 mg/dL; Very Low Density Lipoprotein 20 mg/dL (5-40)
== END | disposition home or self-care (01) ==
LOC: MFPLAB 09:04
PROVIDERS: PCP Family Medicine; Visit Provider Family Medicine
DX: I10 Essential (primary) hypertension (principal); Z12.5 Encounter for screening for malignant neoplasm of prostate
CPT/HCPCS: 36415; 80053; 80061; 84153; G0103

== ENCOUNTER → 2024-07-21 | Outpatient (CLI) | payer BC, SELFPAY ==
[2024-07-21 15:30] LABS: ALB/GLOB Ratio 1.1 RATIO (0.9-2.4); AST(SGOT) 31 U/L (15-37); Alanine Aminotransfer ALT/SGPT 43 U/L (16-61); Albumin, Serum 3.4 g/dL (3.2-5.0); Alkaline Phosphatase 74 U/L (45-117); Anion Gap 5 (5-15); BUN 10 mg/dL (7-18); Calcium,Total 9.2 mg/dL (8.5-10.1); Chloride 104 mmol/L (98-107); Cholesterol 213 mg/dL (200); EST Glomerular Filtration Rate 83 mL/min (>60); Est Glom Filt Rate - Afr Amer 101 mL/min (>60); Globulin 3.2 g/dL (2.2-4.2); Glucose 155 mg/dL (74-106); High Density Lipoprotein 47 mg/dL; PSA,Total - Annual Screen 1.24 ng/mL (0.00-4.00); Potassium 4.2 mmol/L (3.5-5.1); Protein, Total 6.6 g/dL (6.4-8.2); Sodium Level 137 mmol/L (136-145); Triglycerides 113 mg/dL; Very Low Density Lipoprotein 23 mg/dL (5-40)
== END | disposition home or self-care (01) ==
LOC: MTLAB 11:10
PROVIDERS: PCP Family Medicine; Referring Provider Family Medicine; Visit Provider Family Medicine
DX: R73.01 Impaired fasting glucose (principal); Z12.5 Encounter for screening for malignant neoplasm of prostate
CPT/HCPCS: 36415; 80053; 80061; 84153; 84403; 84443; G0103

== ENCOUNTER 2024-09-30 08:44 | Emergency (ER) | payer BC, SELFPAY ==
[2024-09-30] VITALS (16 sets, daily range): BP systolic 133–151; BP diastolic 88–111; PULSE 66–87; RESP 12–16; TEMP 36.2–36.6; O2SAT 93–100; BMI 40.0
--- NOTE | 2024-09-30 08:50 | EDS_ITS ---
HPI History of Present Illness Chief Complaint: Chest Pain [facility] Medical History Alcohol use Chronic cough Current nicotine use Hypertension Kidney stones Wears glasses Home Medications ?Medication ?Instructions ?Recorded ?Last Taken ?Type lisinopril 10 mg tablet 20 mg PO QHS 08/04/22 11/17/22 23:55 History metoprolol tartrate 25 mg tablet 12.5 mg (1/2 x 25 mg) PO DAILY PRN 09/30/24 Unknown Rx PVCs 30 days #30 tabs Allergy/AdvReac Type Severity Reaction Status Date / Time No Known Allergies Allergy Verified 09/30/24 08:45 Surgical History History of colonoscopy History of lithotripsy S/P thyroid surgery Social History adopted: Yes Smoking Status: Current every day smoker tobacco type: cigars and smokeless tobacco alcohol intake: current alcohol intake frequency: 0-2 drinks per day substance use type: does not use EXAM Physical Exam Const Vital Signs: 09/30/24 08:45 09/30/24 08:48 09/30/24 08:53 Temperature 97.1 F L Temperature Source Temporal Pulse Rate 87 79 Respiratory Rate 16 16 Respiratory Effort Short of Breath Blood Pressure 133/111 H Blood Pressure Mean 118 Pulse Ox 98 100 Oxygen Delivery Method Room Air 09/30/24 09:00 09/30/24 09:00 09/30/24 09:15 Temperature Temperature Source Pulse Rate 82 Respiratory Rate 16 Respiratory Effort Blood Pressure 145/90 H Blood Pressure Mean 108 Pulse Ox 100 Oxygen Delivery Method Room Air 09/30/24 09:16 09/30/24 09:30 09/30/24 09:51 Temperature Temperature Source Pulse Rate 75 73 77 Respiratory Rate 13 14 14 Respiratory Effort Blood Pressure 144/110 H 151/105 H Blood Pressure Mean 120 118 Pulse Ox 100 Oxygen Delivery Method 09/30/24 10:00 09/30/24 10:15 09/30/24 10:30 Temperature Temperature Source Pulse Rate 70 69 68 Respiratory Rate 15 12 13 Respiratory Effort Blood Pressure Blood Pressure Mean Pulse Ox 98 99 98 Oxygen Delivery Method 09/30/24 10:45 09/30/24 11:00 09/30/24 11:15 Temperature Temperature Source Pulse Rate 66 68 67 Respiratory Rate 13 12 13 Respiratory Effort Blood Pressure Blood Pressure Mean Pulse Ox 97 95 93 Oxygen Delivery Method 09/30/24 12:00 09/30/24 13:00 09/30/24 14:34 Temperature 97.8 F Temperature Source Pulse Rate 69 76 76 Respiratory Rate 16 16 16 Respiratory Effort Blood Pressure 151/105 H 146/96 H 145/88 H Blood Pressure Mean 120 112 107 Pulse Ox 95 94 95 Oxygen Delivery Method Room Air Room Air [facility] Narrative Medical decision making narrative: HISTORY OF PRESENT ILLNESS: 54-year-old male history of hypertension present with chest pain started approximately 30 minutes prior to arrival. The patient denies recent surgery in the last 4 weeks or immobilization in the last 3 days, denies previous diagnosis of DVT or PE, hemoptysis, unilateral leg swelling or malignancy with treatment the last 6 months or palliative. No estrogen use noted. Patient denies sudden onset of pain, no tearing sensation, no migratory symptoms, no new numbness, weakness or loss of sensation. Patient denies family history or personal history of Connective tissue disorders (Marfan's Syndrome, Gregg Danlos etc) REVIEW OF SYSTEMS: Pertinent positives: Chest pain Pertinent negatives: Fever, cough, PHYSICAL EXAM: Nursing triage notes reviewed, Vital signs reviewed Constitutional: please see mdm HENT: MMM Eyes: Pupils equal round and reactive to light, Extraocular muscles intact Neck: No stridor, no JVD, full neck ROM Lungs: Clear to auscultation, No wheezing or rales. No increased work of breathing, no conversational dyspnea, no accessory muscle use, no nasal flaring. No respiratory distress noted Heart: Regular rate and rhythm, No murmurs, No rubs and No gallops, 2+ distal pulses (radial, femoral, posterior tibial) in all extremities Abdomen: Soft, there is no tenderness, rigidity, rebound or guarding, no obvious peritoneal signs, no palpable pulsatile abdominal masses, no auscultated abdominal bruit : No CVAT Extremities: No edema Neuro: No focal neurological deficits, cranial nerves II through XII intact, 5/5 strength in all extremities. Intact sensation to light touch in all extremities, 2+ reflexes bilateral patella tendons. Normal gait. No ataxia. Skin: No rash or lesions noted MEDICAL DECISION MAKING: Chief Complaint: Chest pain External records reviewed: Reviewed prior allergies, problem list, vital signs, prior cardiovascular intervention Factors affecting care: Hypertension, PATTIE, kidney stone Social determinants of health: Alcohol and tobacco use History obtained from others: none Consults: none MDM Narrative: 54-year-old male presents chest pain. Patient was initially hemodynamically stable, afebrile and nontoxic-appearing I considered the following differential diagnosis: ACS, arrhythmia, anemia, electrolyte disturbance, pneumonia, pneumothorax, PE, aortic dissection The patient's history and physical exam not consistent with aortic dissection or PE. The patient's initial observation showed evidence of PVCs we will try 12 mg oral metoprolol. ALL IMAGES (IF OBTAINED) HAVE BEEN PERSONALLY REVIEWED AND INTERPRETED BY MYSELF. EKG with normal sinus rhythm, left axis deviation, normal intervals, no STEMI, no signs of ARVD, Brugada syndrome, right heart strain Magnesium normal limits High-sensitivity troponin is negative, no evidence of myocardial ischemia x2 CBC without leukocytosis, severe anemia, no thrombocytopenia. BMP without evidence of significant electrolyte abnormalities, no anion gap, no acute kidney injury. The synthesis of the patient history, physical exam, labs images suggest no acute life-limiting etiology. Suspected several PVCs. Because he is asymptomatic and the patient note improvement after oral metoprolol will prescribe 12.5 mg Toprol to take daily at home. Will have him follow-up with cardiology. The patient and/or family, caregivers express understanding. The patient and/or family, caregivers agrees with the plan. Shared decision making: I will have a discussion with the patient and or visitors regarding risk/benefits of further testing or admission. They will be made aware of of the risk/benefits inherent in this decision they will be given the opportunity to voice understanding. Total critical care time today provided was at least 0 minutes. This excludes separately billable procedures. Critical care time (if documented) is secondary to the patient having high probability of clinically significant/life threatening deterioration in the patient's condition which required my urgent intervention. Impression: 1. Chest pain 2. History of hypertension 3. Premature ventricular contractions Dispo: Discharge home This note was generated with [employer] dictation software. It may contain incorrect words, spelling, and punctuation that were not noted in review of the chart prior to signing. Lab Data Labs: Laboratory Results - last 24 hr 09/30/24 09/30/24 08:55 11:14 WBC 5.8 RBC 5.30 Hgb 16.9 H Hct 48.0 MCV 90.6 MCH 31.9 MCHC 35.2 RDW Std Deviation 43.2 RDW Coeff of Romina 13.2 Plt Count 159 MPV 11.0 Immature Gran % (Auto) 0.900 Neut % (Auto) 61.3 Lymph % (Auto) 24.1 Chase % (Auto) 11.0 H Eos % (Auto) 1.7 Baso % (Auto) 1.0 Absolute Neuts (auto) 3.6 Absolute Lymphs (auto) 1.40 Nucleated RBC % 0 Sodium 138 Potassium 3.8 Chloride 103 Carbon Dioxide 28.0 Anion Gap 7 BUN 8 Creatinine 0.99 Estim Creat Clear Calc 113.06 Est GFR (MDRD) Af Amer 102 Est GFR (MDRD) Non-Af 84 BUN/Creatinine Ratio 8.1 L Glucose 139 H Calcium 9.5 Magnesium 1.9 Troponin I High Sens < 3 L < 3 L Radiography Diagnostic Testing: Clinical Impression(s) from Imaging Studies Chest X-Ray 09/30/24 09:04 IMPRESSION: No acute cardiopulmonary process identified. Electronically Signed: Elisabet Wood MD at 9:27 EDT , Discharge Plan Triage Chief Complaint: Chest Pain ED Provider: Sean Dunn Dx/Rx/DC Orders Instructions: PVCs Prescriptions: New metoprolol tartrate 25 mg tablet 12.5 mg PO DAILY PRN (Reason: PVCs) 30 Days Qty: 30 0RF No Action lisinopril 10 mg tablet 20 mg PO QHS Primary Care Provider: Deric Shaikh Referrals: Addy Mosher MD [Med Staff - Active Staff] - Activity Restrictions/Additional Instructions: Thank you for trusting us with your care today! Your labs images were reassuring. No signs of life-threatening pathologies. You are likely suffering from PVCs (premature ventricular contractions) Please take prescribed metoprolol as needed if you notice a high PVC burden, or if your especially symptomatic. Please take Tylenol (2 pills, 650 mg), ibuprofen (2 pills, 400 mg) every 6 hours as needed for pain and fever control. Please return to the emergency department if your symptoms change or worsen. Specifically develop shortness breath, chest pain, if you lose consciousness. Please follow with cardiology for further outpatient evaluation and management. Print Language: Portuguese Disposition Disposition: Home, Self Care Discharge Date/Time: 09/30/24 14:36
--- NOTE | 2024-09-30 09:00 | EKG12_ITS ---
Test Reason : CP Blood Pressure : */* mmHG Vent. Rate : 76 BPM Atrial Rate : 76 BPM P-R Int : 172 ms QRS Dur : 90 ms QT Int : 400 ms P-R-T Axes : 12 -9 19 degrees QTcB Int : 450 ms Normal sinus rhythm Normal ECG Confirmed by TIARRA LUNDBERG, JASSON ([id number]), magazine editor JUAN C GIL ([id number]) on 10/02/2024 9:44:14 AM Referred By: DEX Confirmed By: JASSON MAYEN MD
--- NOTE | 2024-09-30 09:04 | RAD_ITS ---
HISTORY: chest pain. TECHNIQUE: XR Chest 1 View. COMPARISON: None. FINDINGS: CARDIOMEDIASTINAL BORDERS: Cardiac silhouette within normal limits in size. Mediastinal contour unremarkable. LUNGS: Radiographically clear. PLEURA: No pleural effusion or pneumothorax seen. OSSEOUS STRUCTURES: Old left clavicle fracture. RAD/Chest 1 View (Portable) IMPRESSION: No acute cardiopulmonary process identified. Electronically Signed: Elisabet Wood MD at 9:27 EDT ,
[2024-09-30 09:05] LABS: Absolute Neutrophil Count 3.6 X10^3/uL (2.0-7.7); Basophil# 0.06 X10^3/uL; Eosinophils% 1.7 % (0-5); Hemoglobin 16.9 g/dL (13.0-16.5); Lymphocyte % 24.1 % (19-41); Mean Corp Hgb Conc 35.2 g/dL (32-36); Mean Corpuscular Hgb 31.9 pg (27.0-32.0); Mean Corpuscular Volume 90.6 fL (80-94); Monocyte# 0.64 X10^3/uL; NRBC Flagged by Analyzer 0 % (0-5); Neutrophil # 3.56 X10^3/uL (2.7-7.7); Neutrophil % 61.3 % (47-70); Platelet Count 159 K/mm3 (150-450); RBC Distribution Width CV 13.2 % (11.6-14.6); RBC Distribution Width SD 43.2 fl (35.1-43.9); White Blood Count 5.8 K/mm3 (4.4-11.0)
[2024-09-30 09:21] LABS: Anion Gap 7 (5-15); BUN 8 mg/dL (7-18); BUN/Creat Ratio 8.1 RATIO (10-20); Calcium,Total 9.5 mg/dL (8.5-10.1); Chloride 103 mmol/L (98-107); Creatinine, Serum 0.99 mg/dL (0.70-1.30); EST Glomerular Filtration Rate 84 mL/min (>60); Est Glom Filt Rate - Afr Amer 102 mL/min (>60); Estimated Creatinine Clearance 113.06 ml/min; Glucose 139 mg/dL (74-106); Magnesium 1.9 mg/dL (1.6-2.6); Potassium 3.8 mmol/L (3.5-5.1); Sodium Level 138 mmol/L (136-145); Troponin-I HS (w/2H Reflex) < 3 pg/mL (3.0-78.0)
[2024-09-30] MEDS: Metoprolol Tartrate 25 MG Tablet 12.5 MG PO (10:00)
[2024-09-30 11:02] LABS: Reflex Troponin-HS? (from REC) Y
[2024-09-30 11:38] LABS: Troponin-I HS < 3 pg/mL (3.0-78.0)
== END 2024-09-30 14:36 | disposition home or self-care (01) ==
PROVIDERS: Emergency Provider Emergency Medicine; PCP Family Medicine; Visit Provider Emergency Medicine
DX: R07.9 Chest pain, unspecified (principal); I49.3 Ventricular premature depolarization; I10 Essential (primary) hypertension; Z79.899 Other long term (current) drug therapy; F17.290 Nicotine dependence, other tobacco product, uncomplicated; F17.220 Nicotine dependence, chewing tobacco, uncomplicated
CPT/HCPCS: 71045; 80048; 83735; 84484; 85025; 93005; 99284; A4216

== ENCOUNTER → 2024-10-23 | Outpatient (CLI) | payer BC, SELFPAY | END | disposition home or self-care (01) | LOC: MFPLAB 09:47 | PROVIDERS: PCP Family Medicine; Visit Provider Family Medicine | DX: R79.89 Other specified abnormal findings of blood chemistry (principal) | CPT/HCPCS: 36415; 84403 ==

== ENCOUNTER → 2025-01-25 | Outpatient (CLI) | payer BC, SELFPAY | END | disposition home or self-care (01) | LOC: MFPLAB 16:20 | PROVIDERS: PCP Family Medicine; Referring Provider Family Medicine; Visit Provider Family Medicine | DX: R79.89 Other specified abnormal findings of blood chemistry (principal) | CPT/HCPCS: 36415; 84403 ==

== ENCOUNTER 2025-03-15 11:38 | Outpatient (CLI) | payer BC, SELFPAY | END 2025-03-15 23:59 | disposition home or self-care (01) | LOC: MFPLAB 11:39 | PROVIDERS: PCP Family Medicine; Referring Provider Family Medicine; Visit Provider Family Medicine | DX: R79.89 Other specified abnormal findings of blood chemistry (principal) | CPT/HCPCS: 36415; 84403 ==

== ENCOUNTER → 2025-08-04 | Outpatient (CLI) | payer BC, SELFPAY ==
--- OUTSIDE RECORDS SUMMARY | 2025-08-04 09:18 | XMS RPT_ITS | CCD ---
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 Eleil Shaikh Primary Care Provider [phone] Dr. Eliel Shaikh Referring Provider Dr. Floyd Hines Attending Provider Flora, Dr. Barrientos Other Provider [phone] Dr. Eliel Shaikh Primary Care Provider Dr. Eliel Shaikh Referring Provider Dr. Floyd Hines Attending Provider Dr. Floyd Hines Other Provider [phone] Dr. Floyd Hines Referring Provider [phone] Eliel Shaikh Primary Care Provider Dr. Eliel Shaikh Referring Provider Dr. Floyd Hines Attending Provider Neel LUNDBERG, Dr. Leos Primary Care Provider Dr. Deric Shaikh MD Attending Provider [phone] Dr. Deric Shaikh MD Referring Provider [phone] Dr. Floyd Negrete MD Attending Provider Neel LUNDBERG, Dr. Leos Primary Care Provider Dr. Deric Shaikh MD Attending Provider Deric Shaikh Primary Care Unavailable Deric Shaikh Attending Unavailable Deric Shaikh Referring Unavailable Deric Shaikh Primary Care Unavailable Floyd Negrete Attending Unavailable Deric Shaikh Referring Unavailable Deric Shaikh Primary Care Unavailable Sean Dunn Attending Unavailable Deric Shaikh Primary Care Unavailable Deric Shaikh Attending Unavailable Deric Shaikh Referring Unavailable Deric Shaikh Primary Care Unavailable Deric Shaikh Attending Unavailable Deric Shaikh Referring Unavailable Deric Shaikh Primary Care Unavailable Deric Shiakh Attending Unavailable Medications Current Medications Medication Drug Class(es) Dates Sig (Normalized) Sig (Original) lisinopril 10 mg oral tablet (6 sources) Angiotensin Converting Enzyme Inhibitor Start: 08-04-2022 take 2 tablets by mouth at bedtime Lisinopril 10 mg tablet Active 20 mg PO AT BEDTIME August 04, 2022 12:00am Start: 08-04-2022 take 10 mg by mouth at bedtime Lisinopril Active 10 MG PO AT BEDTIME August 04, 2022 12:00am metoprolol tartrate 25 mg oral tablet (2 sources) beta-Adrenergic Neelima Start: 09-30-2024 Metopr olol Tartrate 25 mg tablet Active 12.5 mg PO DAILY as needed for PVCs September 30, 2024 2:27pm 1250 mg testosterone 0.0162 mg/mg topical gel (2 sources) Androgen Start: 12-14-2024 Testosterone 1 .62 % (20.25 mg/1.25 gram) gel in packet Active TOPICAL daily December 14, 2024 1:00am Completed/Discontinued Medications Medication Drug Class(es) Dates Sig (Normalized) Sig (Original) oxyCODONE hydrochloride 5 mg oral tablet (5 sources) Opioid Agonist Start: 11-18-2022 End: 09-30-2024 take 1 tablet by mouth every six hours as needed for pain Oxycodone 5 mg tablet Discontinued 5 mg PO EVERY 6 HOURS as needed for pain 14 November 18, 2022 September 30, 2024 8:49am Problems Active Problems Problem Classification Problem Date Documented Date Episodic/Chronic Calculus of urinary tract (4 sources) Urolithiasis ; Translations: [Urinary calculus, unspecified] 12-20-2022 Episodic Cardiac dysrhythmias (4 sources) Multiple premature ventricular complexes; Translations: [Ventricular premature depolarization] 11-28-2024 Chronic Diabetes mellitus without complication (4 sources) Type 2 diabetes mellitus; Translations: [Type 2 diabetes mellitus without complications] 12-14-2024 Chronic Disorders of lipid metabolism (4 sources) Hyperlipidemia; Translations: [Hyperlipidemia, unspecified] 12-14-2024 Chronic Essential hypertension (8 sources) Hypertensive disorder; Translations: [Essential (primary) hypertension] 08-04-2022 Chronic Other screening for suspected conditions (not mental disorders or infectious disease) (9 sources) Patient encounter status; Translations: [Encounter for screening for malignant neoplasm of colon] Onset: 02-08-2025 Episodic Comment on above: This is a 52-year-ol d male who is referred for screening colonoscopy given his age. He reports a lifelong history of alternating between looser stools and constipation. Subjectively he has been told by past providers this may represent a diagnosis of irritable bowel syndrome, but has not undergone any formal work-up for this issue. Otherwise denies any acute changes to his GI function and simply presents for a maintenance evaluation. Procedure was described in detail including prep and need for a bobcat driver/labor. Patient expresses understanding of all this information. Other skin disorders (6 sources) Subcutaneous mass of neck; Translations: [Localized swelling, mass and lump, neck] 08-04-2022 Episodic Comment on above: Patient with a moder ately large subcutaneous mass on the right posterior aspect of his neck. Is largely asymptomatic and has remained relatively stable in size, but he notes some occasional discomfort in the morning after sleeping on that side. Therefore, he requests removal. By exam, this appears to represent a lipoma. Given its size, I recommend removal in the operating room for the benefit of some sedation to enhance his comfort. Other skin disorders (2 sources) Localized swelling, mass and lump, neck; Translations: [Swelling, mass, or lump in head and neck] Episodic Residual codes; unclassified (8 sources) Sleep apnea; Translations: [Sleep apnea, unspecified] 08-04-2022 Chronic Residual codes; unclassified (4 sources) H/O: neoplasm; Translations: [Other specified postprocedural states] 11-26-2022 Episodic Comment on above: Patient presents for 1 week, postoperative follow-up of excision of right posterior neck lipoma. He is overall doing well with minimal discomfort. He states at this point is mostly muscular. He denies any wound concerns. On exam patient has an overall well-appearing postoperative wound with some slight erythema. At this time I do not palpate any fluctuance but there is significant induration. Patient is at some risk for seroma formation given the sheer size of his subcutaneous mass. I have offered to arrange for a second wound check visit, but patient wishes to continue the wound care instructions (application of triple antibiotic ointment daily and showering) and see how things evolve. He promises to let me know if there are any concerns. 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 Residual codes; unclassified (1 source) Other specified postprocedural states; Translations: [Other postprocedural status] Episodic Past or Other Problems Problem Classification Problem Date Documented Da te Episodic/Chronic Diabetes mellitus without complication (1 source) Impaired fasting glucose; Translations: [Impaired fasting glucose] Onset: 08-02-2024 Episodic Nonspecific chest pain (1 source) Chest pain, unspecified; Translations: [Chest pain, unspecified] Onset: 10-23-2024 Episodic Results Test Name Value Interpretation Reference Range Facility L509.3001on 03-15-2025 Testosterone [Mass/Vol] 292.00 ng/dL Low 300-890 [facility] Comment on above: Performed By: #### L 509.3001 ####[facility] [id number] [place], [place], [address] Laboratory - Chemistry and C hemistry - challengeOrdered By: Deric Shaikh on 03-15-2025 Testosterone [Mass/Vol] 292.00 ng/dL Low 300-890 [facility] L509.3001on 01-25-2025 Testosterone [Mass/Vol] 279.00 ng/dL Low 300-890 [facility] Comment on above: Performed By: #### L 509.3001 #### [facility] [address] [place], [place], [address] Laboratory - Chemistry and C hemistry - challengeOrdered By: Deric Shaikh on 01-25-2025 Testosterone [Mass/Vol] 279.00 ng/dL Low 300-890 [facility] Cardiology Visit Reporton Cardiology Visit Report [facility] [address] [place] [address] OFFICE VISIT Date of Service: 12/14/24 MR#: [id number] Acct: [id number] Name: LEANDER FOOTE Rep #: [id number] : 1970 Provider: Dr. Floyd gauthier MD Age/Sex: 54/M Location: [facility] Status: Signed HPI HPI History of Present Illness Details: Patient is a 54-year-old white male that comes in today for new patient visit. Patient was seen in the emergency department September 2020 for with significant palpitations and some chest symptoms. His troponins were negative from 2 sets and his EKG showed normal sinus rhythm and was normal. The patient did have documented 30 or so PVCs per minute on telemetry while he was there and he was very much aware of each 1. The patient was treated with beta-neelima and the symptoms resolved. He subsequently had an event monitor that he wore from October 23October 2. That showed predominantly normal sinus rhythm with an occasional ectopic atrial rhythm less than 0.1% PACs and less than 0.1% PVCs. The patient had multiple triggers for what appears to be sinus tachycardia. This is really a benign event monitor. The patient does have a history of hypertension on medical therapy he does use nicotine pouches he also has a history of hyperlipidemia not on therapy and diabetes mellitus. His diabetes is well- controlled with diet. He is not routinely exercising and has gained 40 pounds which is now stabilized by his report. Last hemoglobin A1c was 6.3. The patient does have obstructive sleep apnea and he is compliant with his CPAP. He was wearing his CPAP on the Wednesday morning when all these PVCs occurred back in September. The patient denies any syncope or near syncope he is active in his home environment without any restrictions. 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 Intake Vital Signs 09/30/24 08:45 12/14/24 08:34 Height 5 ft 9 in 5 ft 9 in Weight: 277 lb BMI 40.8 BP 123/86 H Blood Pressure Location Lt brachial Position Sitting Respiration 18 Pulse 86 Pulse Source Monitor Pulse Oximetry (%) 94 Oxygen Delivery Method room air Intake Visit Reasons: PVCs (Ranney) Stone Planer Required: No Accompanied by: Self Is patient in pain?: No Allergies No Known Allergies Allergy (Verified 12/14/24 08:34) Medications ???Medication ???Instructions ???Recorded ???Confirmed ???Type lisinopril 10 mg tablet 20 mg PO QHS 08/04/22 12/14/24 History metoprolol tartrate 25 mg tablet 12.5 mg (1/2 x 25 mg) PO DAILY PRN 09/30/24 12/14/24 Rx PVCs 30 days #30 tabs testosterone 1.62 % (20.25 mg/1.25 topical QDAY 12/14/24 12/14/24 History gram) transdermal gel packet Have you fallen in the past year?: No PFSH Medical History PVC (premature ventricular contraction) Hypertension Type 2 diabetes mellitus Wears glasses Alcohol use Kidney stones Current nicotine use Chronic cough Hypertension Surgical History History of colonoscopy History of lithotripsy S/P thyroid surgery Social History adopted: Yes Smoking Status: Never smoker Smokeless tobacco user: other alcohol intake: current alcohol intake frequency: 0-2 drinks per day substance use type: does not use caffeine: No ROS Const Const: Negative for fatigue or weakness ENT ENT: Negative for dizziness or balance problems Cardio Chest Pain: No Palpitations: Yes Edema: Bilateral (pt states PCP noticed) Muscle aches with walking: None Resp Respiratory: Positive for SOB with activity; Negative for SOB at rest or SOB orthopnea SOB lying down GI GI: Positive for heartburn; Negative nausea or vomiting Musc Musc: Negative for muscle weakness or balance problems Neuro Neuro: Negative for dizziness, lightheadedness, near syncope, syncope or weakness Endo Endo: Negative for fatigue Cardiology Exam Const Appearance: cooperative, comfortable and no acute distress Nutritional Appearance: obese and overweight Head Head: normal to inspection Eyes General: appearance normal, both eyes and all related structures Neck Neck: normal visual inspection and no JVD Carotids: Negative bruit Chest Chest inspection: normal inspection of the chest Auscultation: Bilateral: Clear to Auscultation Cardio Rate: regular rate Rhythm: regular rhythm Heart sounds: S1 normal and S2 normal; Negative rub, gallop or murmur GI GI: normal to inspection and obese Neuro General: patient alert and patient oriented x3 Skin Sk (more content not included)... Normal [facility] Testosterone, Serum Totalon 10-23-2024 Testosterone [Mass/Vol] 138.98 ng/dL Normal [facility] Comment on above: Order Comment: Order Date: 07/26/24 Order Info: [id number] - KARL Result Comment: CENT RAL 90% REFERENCE RANGES MALE AGE <50 197.44 - 669.58 ng/dL MALE AGE > or = 50 187.72 - 684.19 ng/dL FEMALE AGE <50 8.38 - 35.01 ng/dL FEMALE AGE > or = 50 <7.00 - 35.92 ng/dL Effective as of 06/24/21 Performed By: #### L 509.3000 #### [facility] [address] [place], [address] Testosterone, totalOrdered B y: Deric Shaikh on 10-23-2024 Testosterone [Mass/Vol] 138.98 ng/dL [facility] Comment on above: CENTRAL 90% REFERENC E RANGES MALE AGE <50 197.44 - 669.58 ng/dL MALE AGE > or = 50 187.72 - 684.19 ng/dL FEMALE AGE <50 8.38 - 35.01 ng/dL FEMALE AGE > or = 50 <7.00 - 35.92 ng/dL Effective as of 06/24/21 12 Lead EKGon 09-30-2024 12 Lead EKG [facility] Services [address] [place] [address] 12 Lead EKG 09/30/24 0847 MR#: [id number] Acct: [id number] Name: LEANDER FOOTE Rep #: [id number] : 1970 54 From: Addy Mayen MD Attending Dr: Status: DEP ER Ordering Dr: Sean Dunn DO Date: 09/30/24 Location: ED Sex: M C Admitted: Test Reason : CP Blood Pressure : */* mmHG Vent. Rate : 76 BPM Atrial Rate : 76 BPM P-R Int : 172 ms QRS Dur : 90 ms QT Int : 400 ms P-R-T Axes : 12 -9 19 degrees QTcB Int : 450 ms Normal sinus rhythm Normal ECG Confirmed by ADDY MAYEN MD ([id number]), editor in chief JUAN C GIL ([id number]) on 10/02/2024 9:44:14 AM Referred By: DEX Confirmed By: ADDY MAYEN MD 10/02/2444 Date Addy Mayen MD CC: Dr. Deric Shaikh MD; Dr. Sean Dunn DO Signed Normal [facility] Basic Metabolic Profile (BMP )on 09-30-2024 BUN/CRE 8.1 RATIO Low 10-20 [facility] Comment on above: Order Comment: 1 Y Performed By: #### L 500.2500, L100.0100, L501.5425, L501.5200 #### [facility] [address] [place], [address] CA,Total 9.5 mg/dL Normal 8.5-10.1 [facility] Comment on above: Order Comment: 1 Y Performed By: #### L 500.2500, L100.0100, L501.5425, L501.5200 #### [facility] [address] [place], [address] Chloride [Moles/Vol] 103 mmol/L Normal 98-107 [facility] Comment on above: Order Comment: 1 Y Performed By: #### L 500.2500, L100.0100, L501.5425, L501.5200 #### [facility] [address] [place], [address] CO2 [Moles/Vol] 28.0 mmol/L Normal 21.0-32.0 [facility] Comment on above: Order Comment: 1 Y Performed By: #### L 500.2500, L100.0100, L501.5425, L501.5200 #### [facility] [address] [place], [address] Creatinine [Mass/Vol] 0.99 mg/dL Normal 0.70-1.30 [facility] Comment on above: Order Comment: 1 Y Result Comment: The validity of the calculated GFR GFRAA in patients over 70 years has not been determined. Clinical correlation is essential. Performed By: #### L 500.2500, L100.0100, L501.5425, L501.5200 #### [facility] [address] [place], [address] ECRCL 113.06 ml/min Normal [facility] Comment on above: Order Comment: 1 Y Performed By: #### L 500.2500, L100.0100, L501.5425, L501.5200 #### [facility] [address] [place], [address] EST GFR - AA 102 mL/min Normal >60 [facility] Comment on above: Order Comment: 1 Y Result Comment: Afri can Guatemalan GFR Calc Performed By: #### L 500.2500, L100.0100, L501.5425, L501.5200 #### [facility] [address] [place], [address] GAP 7 Normal 5-15 [facility] Comment on above: Order Comment: 1 Y Performed By: #### L 500.2500, L100.0100, L501.5425, L501.5200 #### [facility] [address] [place], [address] GFR/1.73 sq M.predicted among non-blacks MDRD (S/P/Bld) [Vol rate/Area] 84 mL/min/{1.73_m2} Normal >60 [facility] Comment on above: Order Comment: 1 Y Result Comment: Non- GFR Calc Performed By: #### L 500.2500, L100.0100, L501.5425, L501.5200 #### [facility] [address] [place], [address] Glucose [Mass/Vol] 139 mg/dL High 74-106 [facility] Comment on above: Order Comment: 1 Y Result Comment: Fast ing Glucose result greater than or equal to 126 mg/dL suggests DIABETES MELLITUS per A.D.A. criteria. Performed By: #### L 500.2500, L100.0100, L501.5425, L501.5200 #### [facility] [address] [place], [address] Potassium [Moles/Vol] 3.8 mmol/L Normal 3.5-5.1 [facility] Comment on above: Order Comment: 1 Y Performed By: #### L 500.2500, L100.0100, L501.5425, L501.5200 #### [facility] [address] [place], [address] Sodium [Moles/Vol] 138 mmol/L Normal 136-145 [facility] Comment on above: Order Comment: 1 Y Performed By: #### L 500.2500, L100.0100, L501.5425, L501.5200 #### [facility] [address] [place], [address] Urea nitrogen [Mass/Vol] 8 mg/dL Normal 7-18 [facility] Comment on above: Order Comment: 1 Y Performed By: #### L 500.2500, L100.0100, L501.5425, L501.5200 #### [facility] [address] [place], [address] CBC W/Diff, Automatedon 11-0 Absolute Lymph 1.40 X10 3/uL Normal 0.83-4.51 [facility] Comment on above: Performed By: #### L 500.2500, L100.0100, L501.5425, L501.5200 #### [facility] [address] [place], [address] Absolute Neut 3.6 X10 3/uL Normal 2.0-7.7 [facility] Comment on above: Performed By: #### L 500.2500, L100.0100, L501.5425, L501.5200 #### [facility] [address] [place], [address] Basophils/100 WBC (Bld) 1.0 % Normal 0-1 [facility] Comment on above: Performed By: #### L 500.2500, L100.0100, L501.5425, L501.5200 #### [facility] [address] [place], [address] Eosinophils/100 WBC (Bld) 1.7 % Normal 0-5 [facility] Comment on above: Performed By: #### L 500.2500, L100.0100, L501.5425, L501.5200 #### [facility] [address] [place], [address] Erythrocyte distribution width (RBC) [Ratio] 13.2 % Normal 11.6-14.6 [facility] Comment on above: Performed By: #### L 500.2500, L100.0100, L501.5425, L501.5200 #### [facility] [address] [place], [address] Hematocrit (Bld) [Volume fraction] 48.0 % Normal 40-54 [facility] Comment on above: Performed By: #### L 500.2500, L100.0100, L501.5425, L501.5200 #### [facility] [address] [place], [address] Hemoglobin (Bld) [Mass/Vol] 16.9 g/dL High 13.0-16.5 [facility] Comment on above: Performed By: #### L 500.2500, L100.0100, L501.5425, L501.5200 #### [facility] [address] [place], [address] IG% 0.900 Normal 0.0-0.9 [facility] Comment on above: Result Comment: IG% - Immature Granulocytes (promyelocytes, myelocytes and metamyelocytes) > 1% indicates that a LEFT SHIFT is Present. Performed By: #### L 500.2500, L100.0100, L501.5425, L501.5200 #### [facility] [address] [place], [address] Lymphocytes/100 WBC (Bld) 24.1 % Normal 19-41 [facility] Comment on above: Performed By: #### L 500.2500, L100.0100, L501.5425, L501.5200 #### [facility] [address] [place], [address] MCH (RBC) [Entitic mass] 31.9 pg Normal 27.0-32.0 [facility] Comment on above: Performed By: #### L 500.2500, L100.0100, L501.5425, L501.5200 #### [facility] [address] [place], [address] MCHC (RBC) [Mass/Vol] 35.2 g/dL Normal 32-36 [facility] Comment on above: Performed By: #### L 500.2500, L100.0100, L501.5425, L501.5200 #### [facility] [address] [place], [address] MCV (RBC) [Entitic vol] 90.6 fL Normal 80-94 [facility] Comment on above: Performed By: #### L 500.2500, L100.0100, L501.5425, L501.5200 #### [facility] [address] [place], [address] Monocytes/100 WBC (Bld) 11.0 % High 0-10 [facility] Comment on above: Performed By: #### L 500.2500, L100.0100, L501.5425, L501.5200 #### [facility] [address] [place], [address] Neutrophils/100 WBC (Bld) 61.3 % Normal 47-70 [facility] Comment on above: Performed By: #### L 500.2500, L100.0100, L501.5425, L501.5200 #### [facility] [address] [place], [address] Nucleated RBC (Bld) [#/Vol] 0 10*3/uL Normal 0-5 [facility] Comment on above: Performed By: #### L 500.2500, L100.0100, L501.5425, L501.5200 #### [facility] [address] [place], [address] Platelet mean volume (Bld) [Entitic vol] 11.0 fL Normal 6.2-12.0 [facility] Comment on above: Performed By: #### L 500.2500, L100.0100, L501.5425, L501.5200 #### [facility] [address] [place], [address] Platelets (Bld) [#/Vol] 159 10*3/uL Normal 150-450 [facility] Comment on above: Performed By: #### L 500.2500, L100.0100, L501.5425, L501.5200 #### [facility] [address] [place], [address] RBC (Bld) [#/Vol] 5.30 10*6/uL Normal 4.6-6.2 [facility] Comment on above: Performed By: #### L 500.2500, L100.0100, L501.5425, L501.5200 #### [facility] [address] [place], [address] RDW SD 43.2 fl Normal 35.1-43.9 [facility] Comment on above: Performed By: #### L 500.2500, L100.0100, L501.5425, L501.5200 #### [facility] [address] [place], [address] WBC (Bld) [#/Vol] 5.8 10*3/uL Normal 4.4-11.0 [facility] Comment on above: Performed By: #### L 500.2500, L100.0100, L501.5425, L501.5200 #### [facility] [address] [place], [address] Chest 1 View (Portable)on Chest 1 View (Portable) [facility] Imaging Services [address] [place] [address] Chest 1 View (Portable) MR#: [id number] Acct: [id number] Name: LEANDER FOOTE Rep #: [id number] : 1970 M 54 From: Elisabet gonzáles MD PCP: Dr. Deric Sahikh MD Status: REG ER Study: Chest 1 View (Portable) Date of Exam: 09/30/24 Exam# [id number] Ordering Dr: Sean Dunn DO [id number] HISTORY: chest pain. TECHNIQUE: XR Chest 1 View. COMPARISON: None. FINDINGS: CARDIOMEDIASTINAL BORDERS: Cardiac silhouette within normal limits in size. Mediastinal contour unremarkable. LUNGS: Radiographically clear. PLEURA: No pleural effusion or pneumothorax seen. OSSEOUS STRUCTURES: Old left clavicle fracture. RAD/Chest 1 View (Portable) IMPRESSION: No acute cardiopulmonary process identified. Electronically Signed: Elisabet Wood MD at 9:27 EDT Reading Location ID and State: [facility] [place] Tel , Service support , CC: Dr. Deric Shaikh MD; Dr. Sean Dunn DO Interior Design Professor: Signed Normal [facility] Emergency Department Summary on 09-30-2024 Emergency Department Summary [facility] Medical Records Department [address] [place] [address] Emergency Department Summary 09/30/24 MR#: [id number] Acct: [id number] Name: LEANDER FOOTE Rep #: [id number] : 1970 54 From: Sean Dunn DO PCP: Dr. Deric Shaikh MD Status:DEP ER Location: ED HPI History of Present Illness Chief Complaint: Chest Pain PFSH PFSH Medical History Alcohol use Chronic cough Current nicotine use Hypertension Kidney stones Wears glasses Home Medications ???Medication ???Instructions ???Recorded ???Last Taken ???Type lisinopril 10 mg tablet 20 mg PO QHS 08/04/22 11/17/22 23:55 History metoprolol tartrate 25 mg tablet 12.5 mg (1/2 x 25 mg) PO DAILY PRN 09/30/24 Unknown Rx PVCs 30 days #30 tabs Allergy/AdvReac Type Severity Reaction Status Date / Time No Known Allergies Allergy Verified 09/30/24 08:45 Surgical History History of colonoscopy History of lithotripsy S/P thyroid surgery Social History adopted: Yes Smoking Status: Current every day smoker tobacco type: cigars and smokeless tobacco alcohol intake: current alcohol intake frequency: 0-2 drinks per day substance use type: does not use EXAM Physical Exam Const Vital Signs: 09/30/24 08:45 09/30/24 08:48 09/30/24 08:53 Temperature 97.1 F L Temperature Source Temporal Pulse Rate 87 79 Respiratory Rate 16 16 Respiratory Effort Short of Breath Blood Pressure 133/111 H Blood Pressure Mean 118 Pulse Ox 98 100 Oxygen Delivery Method Room Air 09/30/24 09:00 09/30/24 09:00 09/30/24 09:15 Temperature Temperature Source Pulse Rate 82 Respiratory Rate 16 Respiratory Effort Blood Pressure 145/90 H Blood Pressure Mean 108 Pulse Ox 100 Oxygen Delivery Method Room Air 09/30/24 09:16 09/30/24 09:30 09/30/24 09:51 Temperature Temperature Source Pulse Rate 75 73 77 Respiratory Rate 13 14 14 Respiratory Effort Blood Pressure 144/110 H 151/105 H Blood Pressure Mean 120 118 Pulse Ox 100 Oxygen Delivery Method 09/30/24 10:00 09/30/24 10:15 09/30/24 10:30 Temperature Temperature Source Pulse Rate 70 69 68 Respiratory Rate 15 12 13 Respiratory Effort Blood Pressure Blood Pressure Mean Pulse Ox 98 99 98 Oxygen Delivery Method 09/30/24 10:45 09/30/24 11:00 09/30/24 11:15 Temperature Temperature Source Pulse Rate 66 68 67 Respiratory Rate 13 12 13 Respiratory Effort Blood Pressure Blood Pressure Mean Pulse Ox 97 95 93 Oxygen Delivery Method 09/30/24 12:00 09/30/24 13:00 09/30/24 14:34 Temperature 97.8 F Temperature Source Pulse Rate 69 76 76 Respiratory Rate 16 16 16 Respiratory Effort Blood Pressure 151/105 H 146/96 H 145/88 H Blood Pressure Mean 120 112 107 Pulse Ox 95 94 95 Oxygen Delivery Method Room Air Room Air [facility] MDM Narrative Medical decision making narrative: HISTORY OF PRESENT ILLNESS: 54-year-old male history of hypertension present with chest pain started approximately 30 minutes prior to arrival. The patient denies recent surgery in the last 4 weeks or immobilization in the last 3 days, denies previous diagnosis of DVT or PE, hemoptysis, unilateral leg swelling or malignancy with treatment the last 6 months or palliative. No estrogen use noted. Patient denies sudden onset of pain, no tearing sensation, no migratory symptoms, no new numbness, weakness or loss of sensation. Patient denies family history or personal history of Connective tissue disorders (Marfan's Syndrome, Gregg Danlos etc) REVIEW OF SYSTEMS: Pertinent positives: Chest pain Pertinent negatives: Fever, cough, PHYSICAL EXAM: Nursing triage notes reviewed, Vital signs reviewed Constitutional: please see mdm HENT: MMM Eyes: Pupils equal round and reactive to light, Extraocular muscles intact Neck: No stridor, no JVD, full neck ROM Lungs: Clear to auscultation, No wheezing or rales. No increased work of breathing, no conversational dyspnea, no accessory muscle use, no nasal flaring. No respiratory distress noted Heart: Regular rate and rhythm, No murmurs, No rubs and No gallops, 2+ distal pulses (radial, femoral, posterior tibial) in all extremities Abdomen: Soft, there is no tenderness, rigidity, rebound or guarding, no obvious peritoneal signs, no palpable pulsatile abdominal masses, no auscultated abdominal bruit : No CVAT Extremities: No edema Neuro: No focal neurological deficits, cranial nerves II through XII intact, 5/5 strength in all extremities. Intact sensation (more content not included)... Normal [facility] L501.4020on 09-30-2024 TROPONIN-I HS < 3 Low 3.0-78.0 [facility] Comment on above: Result Comment: Plea se Note: New Test Units and Gender Specific Reference Ranges. For more information see Policy Stat Procedure [place] High Sensitivity Troponin (TNIH) and attachments. Performed By: #### L 501.4020 ####[facility] [address] [place], [address] L501.5425on 09-30-2024 TROPONIN-I HS < 3 Low 3.0-78.0 [facility] Comment on above: Order Comment: 1 Y Result Comment: Plea se Note: New Test Units and Gender Specific Reference Ranges. For more information see Policy Stat Procedure [place] High Sensitivity Troponin (TNIH) and attachments. Performed By: #### L 500.2500, L100.0100, L501.5425, L501.5200 #### [facility] [address] [place], [address] Magnesiumon 09-30-2024 Magnesium [Mass/Vol] 1.9 mg/dL Normal 1.6-2.6 [facility] Comment on above: Order Comment: 1 Y Performed By: #### L 500.2500, L100.0100, L501.5425, L501.5200 #### [facility] [address] [place], [address] Comprehensive Metabolic Prof ilon 07-21-2024 Albumin [Mass/Vol] 3.4 g/dL Normal 3.2-5.0 [facility] Comment on above: Order Comment: Order Date: 04/10/24Order Info: [id number] - CMPOrder Info: [id number] - LIPIDOrder Info: [id number] - TSHOrder Info: [id number] - PSA Performed By: #### L 500.4100, L501.9520, L500.4050, L509.3000, L501.9910 ####[facility] [address] [place], [address] Albumin/Globulin [Mass ratio] 1.1 {ratio} Normal 0.9-2.4 [facility] Comment on above: Order Comment: Order Date: 04/10/24Order Info: [id number] - CMPOrder Info: [id number] - LIPIDOrder Info: [id number] - TSHOrder Info: [id number] - PSA Performed By: #### L 500.4100, L501.9520, L500.4050, L509.3000, L501.9910 ####[facility] [address] [place], [address] ALK P 74 U/L Normal 45-117 [facility] Comment on above: Order Comment: Order Date: 04/10/24Order Info: [id number] - CMPOrder Info: [id number] - LIPIDOrder Info: [id number] - TSHOrder Info: [id number] - PSA Performed By: #### L 500.4100, L501.9520, L500.4050, L509.3000, L501.9910 ####[facility] [address] [place], [address] ALT [Catalytic activity/Vol] 43 U/L Normal 16-61 [facility] Comment on above: Order Comment: Order Date: 04/10/24Order Info: [id number] - CMPOrder Info: [id number] - LIPIDOrder Info: [id number] - TSHOrder Info: [id number] - PSA Performed By: #### L 500.4100, L501.9520, L500.4050, L509.3000, L501.9910 ####[facility] [address] [place], [address] AST [Catalytic activity/Vol] 31 U/L Normal 15-37 [facility] Comment on above: Order Comment: Order Date: 04/10/24Order Info: [id number] - CMPOrder Info: [id number] - LIPIDOrder Info: [id number] - TSHOrder Info: [id number] - PSA Performed By: #### L 500.4100, L501.9520, L500.4050, L509.3000, L501.9910 ####[facility] [address] [place], [address] Bilirubin [Mass/Vol] 0.90 mg/dL Normal 0.20-1.00 [facility] Comment on above: Order Comment: Order Date: 04/10/24Order Info: [id number]- - CMPOrder Info: [id number] - LIPIDOrder Info: [id number] - TSHOrder Info: [id number] - PSA Result Comment: For patients on eltrombopag therapy, use of Dimension [place] TBIL is not recommended. Performed By: #### L 500.4100, L501.9520, L500.4050, L509.3000, L501.9910 ####[facility] [address] [place], [address] BUN/CRE 10.0 RATIO Normal 10-20 [facility] Comment on above: Order Comment: Order Date: 04/10/24Order Info: [id number]- - CMPOrder Info: [id number] - LIPIDOrder Info: [id number] - TSHOrder Info: [id number] - PSA Performed By: #### L 500.4100, L501.9520, L500.4050, L509.3000, L501.9910 ####[facility] [address] [place], [address] CA,Total 9.2 mg/dL Normal 8.5-10.1 [facility] Comment on above: Order Comment: Order Date: 04/10/24Order Info: [id number] - CMPOrder Info: [id number] - LIPIDOrder Info: [id number] - TSHOrder Info: [id number] - PSA Performed By: #### L 500.4100, L501.9520, L500.4050, L509.3000, L501.9910 ####[facility] [address] [place], [address] Chloride [Moles/Vol] 104 mmol/L Normal 98-107 [facility] Comment on above: Order Comment: Order Date: 04/10/24Order Info: [id number] - CMPOrder Info: [id number] - LIPIDOrder Info: [id number] - TSHOrder Info: [id number] - PSA Performed By: #### L 500.4100, L501.9520, L500.4050, L509.3000, L501.9910 ####[facility] [address] [place], [address] CO2 [Moles/Vol] 28.0 mmol/L Normal 21.0-32.0 [facility] Comment on above: Order Comment: Order Date: 04/10/24Order Info: [id number] - CMPOrder Info: [id number] - LIPIDOrder Info: [id number] - TSHOrder Info: [id number] - PSA Performed By: #### L 500.4100, L501.9520, L500.4050, L509.3000, L501.9910 ####[facility] [address] [place], [address] Creatinine [Mass/Vol] 1.00 mg/dL Normal 0.70-1.30 [facility] Comment on above: Order Comment: Order Date: 04/10/24Order Info: [id number] - CMPOrder Info: [id number] - LIPIDOrder Info: [id number] - TSHOrder Info: [id number] - PSA Result Comment: The validity of the calculated GFR GFRAA in patients over 70 years has not been determined. Clinical correlation is essential. Performed By: #### L 500.4100, L501.9520, L500.4050, L509.3000, L501.9910 ####[facility] [address] [place], [address] EST GFR - AA 101 mL/min Normal >60 [facility] Comment on above: Order Comment: Order Date: 04/10/24Order Info: [id number] - CMPOrder Info: [id number] - LIPIDOrder Info: [id number] - TSHOrder Info: [id number] - PSA Result Comment: Afri can [place] GFR Calc Performed By: #### L 500.4100, L501.9520, L500.4050, L509.3000, L501.9910 ####[facility] [address] [place], [place], [address] GAP 5 Normal 5-15 [facility] Comment on above: Order Comment: Order Date: 04/10/24Order Info: [id number] - CMPOrder Info: [id number] - LIPIDOrder Info: [id number] - TSHOrder Info: [id number] - PSA Performed By: #### L 500.4100, L501.9520, L500.4050, L509.3000, L501.9910 ####[facility] [address] [place], [place], [address] GFR/1.73 sq M.predicted among non-blacks MDRD (S/P/Bld) [Vol rate/Area] 83 mL/min/{1.73_m2} Normal >60 [facility] Comment on above: Order Comment: Order Date: 04/10/24Order Info: [id number] - CMPOrder Info: [id number] - LIPIDOrder Info: [id number] - TSHOrder Info: [id number] - PSA Result Comment: Non- GFR Calc Performed By: #### L 500.4100, L501.9520, L500.4050, L509.3000, L501.9910 ####[facility] [address] [place], [address] Globulin (S) [Mass/Vol] 3.2 g/dL Normal 2.2-4.2 [facility] Comment on above: Order Comment: Order Date: 04/10/24Order Info: [id number] - CMPOrder Info: [id number] - LIPIDOrder Info: 3 - TSHOrder Info: [id number] - PSA Performed By: #### L 500.4100, L501.9520, L500.4050, L509.3000, L501.9910 ####[facility] [address] [place], [address] Glucose [Mass/Vol] 155 mg/dL High 74-106 [facility] Comment on above: Order Comment: Order Date: 04/10/24Order Info: [id number]- - CMPOrder Info: [id number] - LIPIDOrder Info: [id number] - TSHOrder Info: [id number] - PSA Result Comment: Fast ing Glucose result greater than or equal to 126 mg/dL suggests DIABETES MELLITUS per A.D.A. criteria. Performed By: #### L 500.4100, L501.9520, L500.4050, L509.3000, L501.9910 ####[facility] [address] [place], [address] Potassium [Moles/Vol] 4.2 mmol/L Normal 3.5-5.1 [facility] Comment on above: Order Comment: Order Date: 04/10/24Order Info: [id number] - CMPOrder Info: [id number] - LIPIDOrder Info: [id number] - TSHOrder Info: [id number] - PSA Performed By: #### L 500.4100, L501.9520, L500.4050, L509.3000, L501.9910 ####[facility] [address] [place], [address] Sodium [Moles/Vol] 137 mmol/L Normal 136-145 [facility] Comment on above: Order Comment: Order Date: 04/10/24Order Info: [id number] - CMPOrder Info: [id number] - LIPIDOrder Info: [id number] - TSHOrder Info: [id number] - PSA Performed By: #### L 500.4100, L501.9520, L500.4050, L509.3000, L501.9910 ####[facility] [address] [place], [address] T PROT 6.6 g/dL Normal 6.4-8.2 [facility] Comment on above: Order Comment: Order Date: 04/10/24Order Info: [id number]- - CMPOrder Info: [id number] - LIPIDOrder Info: 3 - TSHOrder Info: [id number] - PSA Performed By: #### L 500.4100, L501.9520, L500.4050, L509.3000, L501.9910 ####[facility] [address] [place], [address] Urea nitrogen [Mass/Vol] 10 mg/dL Normal 7-18 [facility] Comment on above: Order Comment: Order Date: 04/10/24Order Info: [id number] - CMPOrder Info: [id number] - LIPIDOrder Info: 6-3 - TSHOrder Info: [id number] - PSA Performed By: #### L 500.4100, L501.9520, L500.4050, L509.3000, L501.9910 ####[facility] [address] [place], [address] Lipid Profileon 07-21-2024 Cholesterol [Mass/Vol] 213 mg/dL High 200 [facility] Comment on above: Order Comment: Order Date: 04/10/24Order Info: [id number] - CMPOrder Info: [id number] - LIPIDOrder Info: 6-3 - TSHOrder Info: [id number] - PSA Result Comment: <200 mg/dL Desirable 200-240 mg/dL Borderline >240 mg/dL High Risk Performed By: #### L 500.4100, L501.9520, L500.4050, L509.3000, L501.9910 ####[facility] [address] [place], [address] Cholesterol in HDL [Mass/Vol] 47 mg/dL Normal [facility] Comment on above: Order Comment: Order Date: 04/10/24Order Info: [id number]- - CMPOrder Info: [id number] - LIPIDOrder Info: [id number] - TSHOrder Info: [id number] - PSA Result Comment: The drugs N-Acetylcysteine and Metamizole may falsely depress this assay. Reference Range HDL <40 mg/dL Low HDL Cholesterol HDL >or= 60 mg/dL High HDL Cholesterol Performed By: #### L 500.4100, L501.9520, L500.4050, L509.3000, L501.9910 ####[facility] [address] [place], [address] Cholesterol in LDL [Mass/Vol] 143 mg/dL High 0-130 [facility] Comment on above: Order Comment: Order Date: 04/10/24Order Info: [id number] - CMPOrder Info: - LIPIDOrder Info: [id number] - TSHOrder Info: [id number] - PSA Performed By: #### L 500.4100, L501.9520, L500.4050, L509.3000, L501.9910 ####[facility] [address] [place], [address] Cholesterol in VLDL [Mass/Vol] 23 mg/dL Normal 5-40 [facility] Comment on above: Order Comment: Order Date: 04/10/24Order Info: [id number] - CMPOrder Info: - LIPIDOrder Info: [id number] - TSHOrder Info: [id number] - PSA Performed By: #### L 500.4100, L501.9520, L500.4050, L509.3000, L501.9910 ####[facility] [address] [place], [address] Triglyceride [Mass/Vol] 113 mg/dL Normal [facility] Comment on above: Order Comment: Order Date: 04/10/24Order Info: [id number] - CMPOrder Info: [id number] - LIPIDOrder Info: [id number] - TSHOrder Info: [id number] - PSA Result Comment: The drugs N-Acetylcysteine and Metamizole may falsely depress this assay. Serum Triglycerides Reference Interval Normal <150 mg/dL Borderline high 150 - 199 mg/dL High 200 - 499 mg/dL Very High > or = 500 mg/dL Performed By: #### L 500.4100, L501.9520, L500.4050, L509.3000, L501.9910 ####[facility] [address] [place], [address] PSA,Total - Annual Screenon 07-21-2024 PSA,TOT SCREEN 1.24 ng/mL Normal 0.00-4.00 [facility] Comment on above: Order Comment: Order Date: 04/10/24Order Info: [id number] - CMPOrder Info: [id number] - LIPIDOrder Info: [id number] - TSHOrder Info: [id number] - PSA Result Comment: This test was performed using the TPSA assay method for the [employer] chemistry system. Values obtained with different assay methods cannot be used interchangably. When changing PSA assays in the course of monitoring a patient, additional sequential testing should be carried out to confirm baseline values. Performed By: #### L 500.4100, L501.9520, L500.4050, L509.3000, L501.9910 ####[facility] [address] [place], [address] Testosterone, Serum Totalon 07-21-2024 Testosterone [Mass/Vol] 182.46 ng/dL Normal [facility] Comment on above: Order Comment: Order Date: 04/10/24Order Info: [id number] - KARL Result Comment: CENT RAL 90% REFERENCE RANGES MALE AGE <50 197.44 - 669.58 ng/dL MALE AGE > or = 50 187.72 - 684.19 ng/dL FEMALE AGE <50 8.38 - 35.01 ng/dL FEMALE AGE > or = 50 <7.00 - 35.92 ng/dL Effective as of 06/24/21 Performed By: #### L 500.4100, L501.9520, L500.4050, L509.3000, L501.9910 ####[facility] [address] [place], [address] Thyroid Stim Hormone (TSH)on 07-21-2024 TSH 2.970 uIU/mL Normal 0.358-3.740 [facility] Comment on above: Order Comment: Order Date: 04/10/24Order Info: [id number] - CMPOrder Info: [id number] - LIPIDOrder Info: [id number] - TSHOrder Info: [id number] - PSA Performed By: #### L 500.4100, L501.9520, L500.4050, L509.3000, L501.9910 ####[facility] [address] [place], [address] Basophil percentageOrdered B y: Eliel Shaikh on 07-20-2023 Bilirubin [Mass/Vol] 0.60 mg/dL 0.20-1.00 [facility] Comment on above: For patients on eltr ombopag therapy, use of Dimension [place] TBIL is not recommended. Chloride [Moles/Vol] 109 mmol/L 98-107 [facility] Cholesterol [Mass/Vol] 195 mg/dL <200 [facility] Comment on above: <200 mg/dL Desirable 200-240 mg/dL Borderline >240 mg/dL High Risk Glucose [Mass/Vol] 129 mg/dL 74-106 [facility] Comment on above: Fasting Glucose resu lt greater than or equal to 126 mg/dL suggests DIABETES MELLITUS per A.D.A. criteria. Potassium [Moles/Vol] 4.1 mmol/L 3.5-5.1 [facility] Protein [Mass/Vol] 6.8 g/dL 6.4-8.2 [facility] Sodium [Moles/Vol] 140 mmol/L 136-145 [facility] Triglyceride [Mass/Vol] 101 mg/dL <199 [facility] Comment on above: The drugs N-Acetylcy steine and Metamizole may falsely depress this assay.Serum Triglycerides Reference Interval Normal <150 mg/dL Borderline high 150 - 199 mg/dL High 200 - 499 mg/dL Very High > or = 500 mg/dL Laboratory - Chemistry and C hemistry - challengeOrdered By: Eliel Shaikh on 07-20-2023 ALP [Catalytic activity/Vol] 71 U/L 45-117 [facility] ALT [Catalytic activity/Vol] 42 U/L 16-61 [facility] CO2 [Moles/Vol] 24.0 mmol/L 21.0-32.0 [facility] Globulin (S) [Mass/Vol] 3.2 g/dL 2.2-4.2 [facility] Urea nitrogen/Creatinine [Mass ratio] 10.6 mg/mg 10-20 [facility] No Panel InformationOrdered By: Eliel Shaikh on 07-20-2023 Estimated GFR (MDRD) Amer 122 mL/min >60 [facility] Comment on above: GFR Calc Estimated GFR (MDRD) Non-Af Amer 101 mL/min >60 [facility] Comment on above: Non- GFR Calc Prostate Specific Antigen Screen 1.03 ng/mL 0.00-4.00 [facility] Comment on above: This test was perfor med using the TPSA assay method for the[employer] chemistry system. Values obtained with differentassay methods cannot be used interchangably.When changing PSA assays in the course of monitoring apatient, additional sequential testing should be carriedout to confirm baseline values. Serum or plasma albumin brennan urement (mass/volume)Ordered By: Eliel Shaikh on 07-20-2023 Albumin [Mass/Vol] 3.6 g/dL 3.2-5.0 [facility] Serum or plasma albumin/glob ulin mass ratioOrdered By: Eliel Shaikh on 07-20-2023 Albumin/Globulin [Mass ratio] 1.1 {ratio} 0.9-2.4 [facility] Serum or plasma calcium brennan urement (mass/volume)Ordered By: Eliel Shaikh on 07-20-2023 Calcium [Mass/Vol] 8.5 mg/dL 8.5-10.1 [facility] Serum or plasma cholesterol in HDL measurement (mass/volume)Ordered By: Eliel Shaikh on 07-20-2023 Cholesterol in HDL [Mass/Vol] 46 mg/dL >40 [facility] Comment on above: The drugs N-Acetylcy steine and Metamizole may falsely depress this assay. Reference Range HDL <40 mg/dL Low HDL Cholesterol HDL >or= 60 mg/dL High HDL Cholesterol Serum or plasma cholesterol in VLDL measurement (mass/volume)Ordered By: Eliel Shaikh on 07-20-2023 Cholesterol in VLDL [Mass/Vol] 20 mg/dL 5-40 [facility] Serum or plasma creatinine m easurement (mass/volume)Ordered By: Eliel Shaikh on 07-20-2023 Creatinine [Mass/Vol] 0.85 mg/dL 0.70-1.30 [facility] Comment on above: The validity of the calculated GFR & GFRAA in patients over 70 years has not been determined. Clinical correlation is essential. Serum or plasma low density lipoprotein (LDL) cholesterol measurement (mass/volume)Ordered By: Eliel Shaikh on 07-20-2023 Cholesterol in LDL [Mass/Vol] 129 mg/dL 0-130 [facility] Serum or plasma urea nitroge n measurement (mass/volume)Ordered By: Eliel Shaikh on 07-20-2023 Urea nitrogen [Mass/Vol] 9 mg/dL 7-18 [facility] Thin prep Papanicolaou smear with manual screeningOrdered By: Eliel Shaikh on 07-20-2023 Thin prep Papanicolaou smear with manual screening 27 U/L 15-37 [facility] Thin prep Papanicolaou smear with manual screening 7 5-15 [facility] Absolute lymphocyte counton 12-12-2022 Lymphocytes Auto (Unsp spec) [#/Vol] 0.99 10*3/uL 0.83-4.51 [facility] Work Phone: Basophil percentageon 2022 Basophil percentage 25-50 SEEN /hpf 0-5 [facility] Work Phone: Basophils/100 WBC (Bld) 1.0 % 0-1 [facility] Work Phone: Chloride [Moles/Vol] 105 mmol/L 98-107 [facility] Work Phone: [phone] Eosinophils/100 WBC (Bld) 1.0 % 0-5 [facility] Work Phone: Glucose [Mass/Vol] 126 mg/dL 74-106 [facility] Work Phone: Comment on above: Fasting Glucose resu lt greater than or equal to 126 mg/dL suggests DIABETES MELLITUS per A.D.A. criteria. Neutrophils (Bld) [#/Vol] 3.4 10*3/uL 2.0-7.7 [facility] Work Phone: Neutrophils/100 WBC (Bld) 69.3 % 47-70 [facility] Work Phone: Potassium [Moles/Vol] 3.8 mmol/L 3.5-5.1 [facility] Work Phone: Sodium [Moles/Vol] 138 mmol/L 136-145 [facility] Work Phone: WBC (Bld) [#/Vol] 5.0 10*3/uL 4.4-11.0 [facility] Work Phone: Bilirubin Test strip Ql (U)o n 12-12-2022 Bilirubin Ql (U) Negative Negative [facility] Work Phone: Blood erythrocytes count (nu mber/volume)on 12-12-2022 RBC (Bld) [#/Vol] 5.44 10*6/uL 4.6-6.2 [facility] Work Phone: Blood hemoglobin measurement (mass/volume)on 12-12-2022 Hemoglobin (Bld) [Mass/Vol] 15.8 g/dL 13.0-16.5 [facility] Work Phone: Blood lymphocytes/100 leukoc yteson 12-12-2022 Lymphocytes/100 WBC (Bld) 20.0 % 19-41 [facility] Work Phone: Blood monocytes/100 leukocyt eson 12-12-2022 Monocytes/100 WBC (Bld) 8.3 % 0-10 [facility] Work Phone: Blood platelet mean volumeon 12-12-2022 Platelet mean volume (Bld) [Entitic vol] 11.3 fL 6.2-12.0 [facility] Work Phone: Determination of erythrocyte mean corpuscular volume (MCV)on 12-12-2022 MCV (RBC) [Entitic vol] 86.9 fL 80-94 [facility] Work Phone: Hematocrit Auto (Bld) [Volum e fraction]on 12-12-2022 Hematocrit (Bld) [Volume fraction] 47.3 % 40-54 [facility] Work Phone: Ketones Test strip Ql (U)on 12-12-2022 Ketones Ql (U) Negative Negative [facility] Work Phone: Laboratory - Chemistry and C hemistry - challengeon 12-12-2022 CO2 [Moles/Vol] 28.0 mmol/L 21.0-32.0 [facility] Work Phone: Urea nitrogen/Creatinine [Mass ratio] 10.3 mg/mg 10-20 [facility] Work Phone: Laboratory - Hematology and Cell countson 12-12-2022 Erythrocyte distribution width (RBC) [Entitic vol] 40.2 fL 35.1-43.9 [facility] Work Phone: Erythrocyte distribution width (RBC) [Ratio] 12.8 % 11.6-14.6 [facility] Work Phone: Immature granulocytes/100 WBC (Bld) 0.400 % 0.0-0.9 [facility] Work Phone: Comment on above: IG% - Immature Granu locytes (promyelocytes, myelocytes and metamyelocytes) > 1% indicates that a LEFT SHIFT is Present. MCH (RBC) [Entitic mass] 29.0 pg 27.0-32.0 [facility] Work Phone: Nucleated RBC/100 WBC (Bld) [Ratio] 0 % 0-5 [facility] Work Phone: MCHC Auto (RBC) [Mass/Vol]on 12-12-2022 MCHC (RBC) [Mass/Vol] 33.4 g/dL 32-36 [facility] Work Phone: Mucus LM Ql (Urine sed)on Mucus Ql (Urine sed) 0 SEEN /hpf [facility] Work Phone: Nitrite Test strip Ql (U)on 12-12-2022 Nitrite Ql (U) Negative Negative [facility] Work Phone: No Panel Informationon 12-12 Estimated Creatinine Clearance Calc 91.11 ml/min [facility] Work Phone: Estimated GFR (MDRD) Amer 106 mL/min >60 [facility] Work Phone: Comment on above: GFR Calc Estimated GFR (MDRD) Non-Af Amer 87 mL/min >60 [facility] Work Phone: Comment on above: Non- GFR Calc Platelets bldon 12-12-2022 Platelets (Bld) [#/Vol] 176 10*3/uL 150-450 [facility] Work Phone: Protein Test strip Ql (U)on 12-12-2022 Protein Ql (U) 15 mg/dl Negative [facility] Work Phone: Serum or plasma calcium brennan urement (mass/volume)on 12-12-2022 Calcium [Mass/Vol] 9.0 mg/dL 8.5-10.1 [facility] Work Phone: Serum or plasma creatinine m easurement (mass/volume)on 12-12-2022 Creatinine [Mass/Vol] 0.97 mg/dL 0.70-1.30 [facility] Work Phone: Comment on above: The validity of the calculated GFR & GFRAA in patients over 70 years has not been determined. Clinical correlation is essential. Serum or plasma urea nitroge n measurement (mass/volume)on 12-12-2022 Urea nitrogen [Mass/Vol] 10 mg/dL 7-18 [facility] Work Phone: Squamous epithelial cells de tection in urine sediment by light microscopyon 12-12-2022 Epithelial cells.squamous LM Ql (Urine sed) 0 SEEN /hpf 0-5 [facility] Work Phone: Thin prep Papanicolaou smear with manual screeningon 12-12-2022 Thin prep Papanicolaou smear with manual screening 5 5-15 [facility] Work Phone: Urine blood detectionon 11-29 RBC Ql (U) 150 /ul Negative [facility] Work Phone: RBC Ql (U) 0-5 SEEN /hpf 0-5 [facility] Work Phone: Urine clarityon 12-12-2022 Clarity (U) Clear Clear [facility] Work Phone: Urine color determinationon 12-12-2022 Color (U) Yellow Yellow [facility] Work Phone: Urine glucose detectionon Glucose Ql (U) Normal mg/dl Normal [facility] Work Phone: Urine leukocyte esterase det ection by dipstickon 12-12-2022 Leukocyte esterase Test strip Ql (U) 100 /ul Negative [facility] Work Phone: Urine pHon 12-12-2022 pH (U) 7.0 [pH] 5.0 - 8.0 [facility] Work Phone: Urine sediment bacteria coun t by microscopy (number/high power field)on 12-12-2022 Bacteria LM.HPF (Urine sed) [#/Area] 0 /[HPF] None Seen [facility] Work Phone: Urine specific gravity measu rementon 12-12-2022 Specific gravity (U) [Rel density] 1.010 1.002-1.030 [facility] Work Phone: Urobilinogen Auto test strip Ql (U)on 12-12-2022 Urobilinogen Ql (U) Normal mg/dl Normal [facility] Work Phone: Basophil percentageon 2021 Bilirubin [Mass/Vol] 0.40 mg/dL 0.20-1.00 [facility] Work Phone: Comment on above: For patients on eltr ombopag therapy, use of Dimension [place] TBIL is not recommended. Chloride [Moles/Vol] 108 mmol/L 98-107 [facility] Work Phone: Cholesterol [Mass/Vol] 186 mg/dL <200 [facility] Work Phone: Comment on above: <200 mg/dL Desirable 200-240 mg/dL Borderline >240 mg/dL High Risk Glucose [Mass/Vol] 143 mg/dL 74-106 [facility] Work Phone: Comment on above: Fasting Glucose resu lt greater than or equal to 126 mg/dL suggests DIABETES MELLITUS per A.D.A. criteria. Potassium [Moles/Vol] 4.0 mmol/L 3.5-5.1 [facility] Work Phone: Protein [Mass/Vol] 6.8 g/dL 6.4-8.2 [facility] Work Phone: Sodium [Moles/Vol] 139 mmol/L 136-145 [facility] Work Phone: Triglyceride [Mass/Vol] 115 mg/dL <199 [facility] Work Phone: Comment on above: The drugs N-Acetylcy steine and Metamizole may falsely depress this assay.Serum Triglycerides Reference Interval Normal <150 mg/dL Borderline high 150 - 199 mg/dL High 200 - 499 mg/dL Very High > or = 500 mg/dL Laboratory - Chemistry and C hemistry - challengeon 07-10-2022 ALP [Catalytic activity/Vol] 70 U/L 45-117 [facility] Work Phone: ALT [Catalytic activity/Vol] 42 U/L 16-61 [facility] Work Phone: CO2 [Moles/Vol] 26.0 mmol/L 21.0-32.0 [facility] Work Phone: Globulin (S) [Mass/Vol] 3.1 g/dL 2.2-4.2 [facility] Work Phone: Urea nitrogen/Creatinine [Mass ratio] 11.5 mg/mg 10-20 [facility] Work Phone: No Panel Informationon 07-10 Estimated GFR (MDRD) Amer 97 mL/min >60 [facility] Work Phone: Comment on above: GFR Calc Estimated GFR (MDRD) Non-Af Amer 80 mL/min >60 [facility] Work Phone: Comment on above: Non- GFR Calc Prostate Specific Antigen Screen 0.93 ng/mL 0.00-4.00 [facility] Work Phone: Comment on above: This test was perfor med using the TPSA assay method for the[facility]. Values obtained with differentassay methods cannot be used interchangably.When changing PSA assays in the course of monitoring apatient, additional sequential testing should be carriedout to confirm baseline values. Serum or plasma albumin brennan urement (mass/volume)on 07-10-2022 Albumin [Mass/Vol] 3.7 g/dL 3.2-5.0 [facility] Work Phone: Serum or plasma albumin/glob ulin mass ratioon 07-10-2022 Albumin/Globulin [Mass ratio] 1.2 {ratio} 0.9-2.4 [facility] Work Phone: Serum or plasma calcium brennan urement (mass/volume)on 07-10-2022 Calcium [Mass/Vol] 8.6 mg/dL 8.5-10.1 [facility] Work Phone: Serum or plasma cholesterol in HDL measurement (mass/volume)on 07-10-2022 Cholesterol in HDL [Mass/Vol] 47 mg/dL >40 [facility] Work Phone: Comment on above: The drugs N-Acetylcy steine and Metamizole may falsely depress this assay. Reference Range HDL <40 mg/dL Low HDL Cholesterol HDL >or= 60 mg/dL High HDL Cholesterol Serum or plasma cholesterol in VLDL measurement (mass/volume)on 07-10-2022 Cholesterol in VLDL [Mass/Vol] 23 mg/dL 5-40 [facility] Work Phone: Serum or plasma creatinine m easurement (mass/volume)on 07-10-2022 Creatinine [Mass/Vol] 1.04 mg/dL 0.70-1.30 [facility] Work Phone: Comment on above: The validity of the calculated GFR & GFRAA in patients over 70 years has not been determined. Clinical correlation is essential. Serum or plasma low density lipoprotein (LDL) cholesterol measurement (mass/volume)on 07-10-2022 Cholesterol in LDL [Mass/Vol] 116 mg/dL 0-130 [facility] Work Phone: Serum or plasma urea nitroge n measurement (mass/volume)on 07-10-2022 Urea nitrogen [Mass/Vol] 12 mg/dL 7-18 [facility] Work Phone: Thin prep Papanicolaou smear with manual screeningon 07-10-2022 Thin prep Papanicolaou smear with manual screening 22 U/L 15-37 [facility] Work Phone: Thin prep Papanicolaou smear with manual screening 5 5-15 [facility] Work Phone: Laboratory - Microbiology an d Antimicrobial susceptibilityon 05-05-2022 SARS-CoV-2 (COVID-19) RNA LISA+probe Ql (Unsp spec) Detected Not Detect [facility] Work Phone: Comment on above: Normal Reference Ran ge: Not DetectedMethod:(RT-PCR) real-time reverse transcriptase PCRLuminex LIN Instrument*The Food and Drug Administration (FDA) has issued an Emergency Use Authorization (EAU) for the LIN SARS-CoV-2 Assay for the rapid detection of the virus that causes COVID-19. This test has been validated, but the FDAs independent review of this validation is pending.*Negative results do not preclude infection and should not be used as the sole basis for treatment or patient management. Optimum specimen types and timing for peak viral levels during infections caused by SARS-CoV-2 have not been determined. Collection of multiple specimens from the same patient may be necessary to detect the virus. The possibility of a false negative result should be considered if the patient has clinical presentation or has had recent exposure. Vital Signs Date Time Vital Sign Value Performing Clinician Faci lity 12-14-2024 08:34-0500 Body height 175.[address] Deric Shaikh MD Work Phone: [facility] 12-14-2024 08:34-0500 Body mass index (BMI) [Ratio] 40.8 kg/m2 Dr. Deric Shaikh MD Work Phone: [facility] 12-14-2024 08:34-0500 Body weight 125.[address] Deric Shaikh MD Work Phone: [facility] 12-14-2024 08:34-0500 Diastolic blood pressure 86 mm[Hg] Dr. Deric Shaikh MD Work Phone: [facility] 12-14-2024 08:34-0500 Heart rate 86 /min Dr. Deric Shaikh MD Work Phone: [facility] 12-14-2024 08:34-0500 Respiratory rate 18 /min Dr. Deric Shaikh MD Work Phone: [facility] 12-14-2024 08:34-0500 SaO2% (BldA) [Mass fraction] 94 % Dr. Deric Shaikh MD Work Phone: [facility] 12-14-2024 08:34-0500 Systolic blood pressure 123 mm[Hg] Dr. Deric Shaikh MD Work Phone: [facility] 12-12-2022 16:32-0500 Diastolic blood pressure 69 mm[Hg] Dr. Eliel Shaikh Work Phone: [facility] Work Phone: 12-12-2022 16:32-0500 Heart rate 82 /min Dr. Eliel Shaikh Work Phone: [facility] Work Phone: 12-12-2022 16:32-0500 Respiratory rate 15 /min Dr. Eliel Shaikh Work Phone: [facility] Work Phone: 12-12-2022 16:32-0500 SaO2% (BldA) [Mass fraction] 98 % Dr. Eliel Shaikh Work Phone: [facility] Work Phone: 12-12-2022 16:32-0500 Systolic blood pressure 134 mm[Hg] Dr. Eliel Shaikh Work Phone: [facility] Work Phone: 12-12-2022 13:17-0500 Body height 175.[address] Eliel Shaikh Work Phone: [facility] Work Phone: 12-12-2022 13:17-0500 Body mass index (BMI) [Ratio] 36.1 kg/m2 Dr. Eliel Shaikh Work Phone: [facility] Work Phone: 12-12-2022 13:17-0500 Body temperature 98.6 [degF] Dr. Eliel Shaikh Work Phone: [facility] Work Phone: 12-12-2022 13:17-0500 Body weight 111.[address] Eliel Shaikh Work Phone: [facility] Work Phone: 11-18-2022 16:10-0500 Body temperature 97.8 [degF] Dr. Eliel Shaikh Work Phone: [facility] Work Phone: 11-18-2022 16:10-0500 Diastolic blood pressure 89 mm[Hg] Dr. Eliel Shaikh Work Phone: [facility] Work Phone: 11-18-2022 16:10-0500 Heart rate 75 /min Dr. Eliel Shaikh Work Phone: [facility] Work Phone: 11-18-2022 16:10-0500 Respiratory rate 16 /min Dr. Eliel Shaikh Work Phone: [facility] Work Phone: 11-18-2022 16:10-0500 SaO2% (BldA) [Mass fraction] 96 % Dr. Eliel Shaikh Work Phone: [facility] Work Phone: 11-18-2022 16:10-0500 Systolic blood pressure 123 mm[Hg] Dr. Eliel Shaikh Work Phone: [facility] Work Phone: 11-18-2022 12:29-0500 Body height 180.[address] Eliel Shaikh Work Phone: [facility] Work Phone: 11-18-2022 12:29-0500 Body mass index (BMI) [Ratio] 35.8 kg/m2 Dr. Eliel Shaikh Work Phone: [facility] Work Phone: 11-18-2022 12:29-0500 Body weight 116.[address] Eliel Shaikh Work Phone: [facility] Work Phone: 09-24-2022 08:44-0400 Body temperature 97 [degF] Dr. Eliel Shaikh Work Phone: [facility] Work Phone: 09-24-2022 08:44-0400 Diastolic blood pressure 79 mm[Hg] Dr. Eliel Shaikh Work Phone: [facility] Work Phone: 09-24-2022 08:44-0400 Heart rate 68 /min Dr. Eliel Shaikh Work Phone: [facility] Work Phone: 09-24-2022 08:44-0400 Respiratory rate 16 /min Dr. Eliel Shaikh Work Phone: [facility] Work Phone: 09-24-2022 08:44-0400 SaO2% (BldA) [Mass fraction] 98 % Dr. Eliel Shaikh Work Phone: [facility] Work Phone: 09-24-2022 08:44-0400 Systolic blood pressure 112 mm[Hg] Dr. Eliel Shaikh Work Phone: [facility] Work Phone: 09-24-2022 07:08-0400 Body height 180.[address] Eliel Shaikh Work Phone: [facility] Work Phone: 09-24-2022 07:08-0400 Body mass index (BMI) [Ratio] 34.7 kg/m2 Dr. Eliel Shaikh Work Phone: [facility] Work Phone: 09-24-2022 07:08-0400 Body weight 112.[address] Eliel Shaikh Work Phone: [facility] Work Phone: 08-04-2022 09:12-0400 Body mass index (BMI) [Ratio] 34.4 kg/m2 Dr. Eliel Shaikh Work Phone: [facility] Work Phone: 08-04-2022 09:12-0400 Body temperature 97.8 [degF] Dr. Eliel Shaikh Work Phone: [facility] Work Phone: 08-04-2022 09:12-0400 Body weight 112.[address] Eliel Shaikh Work Phone: [facility] Work Phone: 08-04-2022 09:12-0400 Diastolic blood pressure 95 mm[Hg] Dr. Eliel Shaikh Work Phone: [facility] Work Phone: 08-04-2022 09:12-0400 Heart rate 69 /min Dr. Eliel Shaikh Work Phone: [facility] Work Phone: 08-04-2022 09:12-0400 Respiratory rate 16 /min Dr. Eliel Shaikh Work Phone: [facility] Work Phone: 08-04-2022 09:12-0400 SaO2% (BldA) [Mass fraction] 98 % Dr. Eliel Shaikh Work Phone: [facility] Work Phone: 08-04-2022 09:12-0400 Systolic blood pressure 131 mm[Hg] Dr. Eliel Shaikh Work Phone: [facility] Work Phone: Encounters Encounter Date Encounter Type Care Provider Facility Start: 03-22-2025 Encounter for genera l adult medical examination without abnormal findings Deric Shaikh [facility] Start: 03-15-2025 End: 03-15-[address] Deric Shaikh MD Work Phone: [facility] Work Phone: Start: 03-15-2025 End: 03-15-[address] Deric Shaikh MD -Laboratory, [facility] Start: 03-15-2025 End: 03-15-2025 ambulatory Deric Shaikh Facility:[facility] Start: 01-25-2025 End: 01-25-[address] Deric Shaikh MD Work Phone: [facility] Work Phone: Start: 01-25-2025 End: 01-25-[address] Deric Shaikh MD -Laboratory, [facility] Start: 01-25-2025 End: 01-25-2025 ambulatory Deric Shaikh Facility:[facility] Start: 12-14-2024 End: 12-14-[address] Floyd Negrete MD -[facility] Work Phone: Start: 12-14-2024 End: 12-14-2024 ambulatory Deric Shaikh Facility:[facility] Start: 10-23-2024 End: 10-23-[address] Deric Shaikh MD -[facility] Start: 10-23-2024 End: 10-23-2024 ambulatory Deric Shaikh Facility:[facility] Start: 09-30-2024 End: 09-30-2024 Emergency department patient visit Deric Shaikh Facility:[facility] Start: 07-21-2024 End: 07-21-2024 ambulatory Deric Shaikh Facility:[facility] Start: 07-20-2023 End: 07-20-2023 ambulatory [facility] Work Phone: Start: 07-20-2023 End: 07-20-2023 Patient encounter procedure [facility] Start: 12-12-2022 End: 12-12-2022 Emergency department patient visit Dr. Eliel Shaikh Work Phone: [facility]-Emergency Department Start: 11-26-2022 End: 11-26-[address] Eliel Shaikh Work Phone: [facility] Start: 11-18-2022 Non-patient / Non-visit Dr. Evan Shaikh Work Phone: [facility] Start: 11-18-2022 End: 11-18-2022 Admission to same day surgery center [facility]iel [facility] Start: 11-18-2022 End: 11-18-[address] Eliel Shaikh Work Phone: [facility] Work Phone: Start: 09-24-2022 Non-patient / Non-visit Dr. Evan Shaikh Work Phone: [facility] Start: 09-24-2022 End: 09-24-2022 Admission to same day surgery center Dr. Eliel Shaikh Work Phone: [facility]Endoscopy Start: 09-24-2022 End: 09-24-[address] Eliel Shaikh Work Phone: [facility] Work Phone: Start: 08-04-2022 End: 08-04-[address] Eliel Shaikh Work Phone: [facility] Start: 07-10-2022 End: 07-10-[address] Eliel Shaikh Work Phone: [facility]Laboratory, [place] Start: 05-05-2022 End: 05-05-2022 Patient encounter procedure [facility]Laboratory, Specimen Procedures Date Procedure Procedure Detail Performing Clinician Start: 12-12-2022 CT of abdomen with contrast Dr. Eliel Shaikh Work Phone: Start: 12-12-2022 CT of abdomen and pe lvis without contrast Dr. Eliel Shaikh Work Phone: Start: 11-18-2022 Excision of lymph node Dr. Eliel Shaikh Work Phone: Start: 09-24-[address] Karlos Shaikh Work Phone: Plan of Treatment Date Care Activity Detail Author Start: 11-18-2022 Patient discharge [facility] Work Phone: Start: 11-18-2022 Anes integ musc & nr v head neck&posterior trunk ANESTH HEAD/NECK/PTRUNK [facility] Work Phone: Start: 11-18-2022 Exc tumor soft tiss neck/thorax subfascial <5cm EXC NECK MAREK DEEP < 5 CM [facility] Work Phone: Start: 09-24-2022 Colonoscopy w/biopsy single/multiple COLONOSCOPY AND BIOPSY [facility] Work Phone: Start: 09-24-2022 Colsc flx w/rmvl of tumor polyp lesion snare tq COLONOSCOPY W/LESION REMOVAL [facility] Work Phone: Start: 09-24-2022 Patient discharge [facility] Work Phone: Colonoscopy [facility] Work Phone: Patient Education ED Kidney Ston e w/ Colic [facility] Work Phone: Patient referral [facility] Work Phone: Payers Date Payer Category Payer Self-pay [id number] 2024 Unknown [id number] 2008 Unknown [facility] *DO NOT USE* [id number] Unknown [id number] Unknown [id number] Unknown [id number] Unknown [id number] Unknown [id number] Unknown [id number] Social History Date Type Detail Facility Tobacco smoking stat [facility] Unknown if ever smoked [facility] Work Phone: Start: 1970 Sex Assigned At Male [facility] Start: 09-18-2022 End: 12-12-2022 Tobacco smoking status [facility] Unknown if ever smoked [facility] Start: 12-14-2024 Tobacco smoking stat [facility] Never smoked tobacco (finding) [facility] Start: 02-08-2025 End: 03-22-2025 Sex Male (finding) [facility] Goals Date Patient Goal Desired Activity /State Mental Status Date Assessment Result Facility 11-18-2022 Cognitive function Awake;Alert;Appropriat e [facility] Work Phone: 11-18-2022 Cognitive function Arousable To Voice/Nam [facility] Work Phone: 09-24-2022 Cognitive function Level Of Cons ciousness Awake;Alert;Appropriate;Follow s Commands [facility] Work Phone: 09-24-2022 Cognitive function Voice/Name [facility] Work Phone: Evaluation note 12-14-2024 Note Date & Type Note Facility 12-14-2024 Evaluation note Diagnosis Onset Date Resolution Hyperlipidemia acute December 142024 8:31am PVC (premature ventricular contraction) acute December 14, 2024 8:31am Sleep apnea acute December 14, 2024 8:31am Type 2 diabetes mellitus acute December 14, 2024 8:31am Hypertension chronic November 8:31am [facility] Work Phone: Evaluation note Note Date & Type Note Facility Evaluation note No assessment information availa ble [facility] Work Phone: Evaluation note Note Date & Type Note Facility Evaluation note Diagnosis Onset Date Screening for colon cancer a cute Subcutaneous mass of neck [place] [facility] Work Phone: Evaluation note Note Date & Type Note Facility Evaluation note Diagnosis Onset Date S/P excision of lipoma acute [facility] Work Phone: Reason for referral (narrative) Note Date & Type Note Facility Reason for referral (narrative) No reason for referral information available [facility] Work Phone: Chief Complaint and Reason for Visit Chief Complaint E ORDER SCREENING COLONOSCOPY AND LIPOMA ON NECK Reason for Visit Screening for colon cancer Subcutaneous mass of neck Chief Complaint SCREENING COLONOSCOP Y AND LIPOMA ON NECK EXCISION LIPOMA RT POSTERIOR NECK EXCISION LIPOMA RT POSTERIOR NECK Reason for Visit Screening for colon cancer Subcutaneous mass of neck Chief Complaint EXCISION LIPOMA RT P OSTERIOR NECK EXCISION LIPOMA RT POSTERIOR NECK F/U neck lipoma removed 11/18 flank pain Reason for Visit S/P excision of lipo ma Chief Complaint Admit Date PVCs ([place]) December 14, 2024 8 :31am Reason for Visit Admit Date Hyperlipidemia December 14, 2024 8 :31am PVC (premature ventricular contraction) December 14, 2024 8:31am Sleep apnea December 14, 2024 8 :31am Type 2 diabetes mellitus December 14, 2 025 8:31am Hypertension December 14, 2024 8 :31am Advance Directives No Advanced Directives Records Found Advance Directive Response Recorded Date/ Time Living Will No September 18 1:37pm Power of Trombone Slide Assembler No September 18, 2022 1:37pm Advance Directive Response Recorded Date/ Time Living Will No October 05 12:57pm Power of Trombone Slide Assembler No October 05, 2022 12:57pm Advance Directive Response Recorded Date/ Time Living Will No December 12 1:42pm Power of Trombone Slide Assembler No December 12, 2022 1:42pm Advance Directive Response Recorded Date/ Time Living Will No December 12 2:42pm Power of Trombone Slide Assembler No December 12, 2022 2:42pm Summary Purpose Family History No Family History Records Found Additional Source Comments Goals (unrecognized section and content) Goals may be documented in a n alternate sectionGoals may be documented in an alternate sectionGoals may be documented in an alternate sectionGoals may be documented in an alternate section Care Teams (unrecognized sec tion and content) Team Status: Active Member Role Status Dates Dr. Eliel Shaikh MD Primary Care Provider Activ e Team Status: Inactive Member Role Status Dates Dr. Eliel Shaikh MD Primary Care Provider, Atte nding Provider Active Team Status: Active Member Role Status Dates Dr. Deric Shaikh MD Primary Care Provider Acti ve Team Status: Inactive Member Role Status Dates Dr. Deric Shaikh MD Primary Care Provider Acti ve Start: October 23, 2024 End: October 23, 2024 Dr. Deric Shaikh MD Attending Provider Active Start: October 23, 2024 End: October 23, 2024 Team Status: Inactive Member Role Status Dates Dr. Deric Shaikh MD Primary Care Provider Acti ve Start: December 14, 2024 End: December 14, 2024 Dr. Deric Shaikh MD Referring Provider Active Start: December 14, 2024 End: December 14, 2024 Dr. Floyd Negrete MD Attending Provider Active Start: December 14, 2024 End: December 14, 2024 Team Status: Inactive Member Role Status Dates Dr. Deric Shaikh MD Primary Care Provider Acti ve Start: January 25, 2025 End: January 25, 2025 Dr. Deric Shaikh MD Attending Provider Active Start: January 25, 2025 End: January 25, 2025 Dr. Deric Shaikh MD Referring Provider Active Start: January 25, 2025 End: January 25, 2025 Team Status: Inactive Member Role Status Dates Dr. Deric Shaikh MD Primary Care Provider Acti ve Start: March 15, 2025 End: March 15, 2025 Dr. Deric Shaikh MD Attending Provider Active Start: March 15, 2025 End: March 15, 2025 Dr. Deric Shaikh MD Referring Provider Active Start: March 15, 2025 End: March 15, 2025 (unrecognized sect ion and content) No Status Records Found INFORMATION SOURCE (unrecogn ized section and content) DATE CREATED AUTHOR 03/23/2025 [facility] FOR RECORDS PERTAINING TO PATIENTS WHO ARE OR HAVE BEEN ENROLLED IN A CHEMICAL DEPENDENCY/SUBSTANCEABUSE PROGRAM, SOME INFORMATION MAY BE OMITTED. This clinical summary was aggregated from multiple sources. Caution should be exercised in using it in the provision of clinical care. This summary normalizes information from multiple sources, and as a consequence, information in this document may materially change the coding, format and clinical context of patient data. In addition, data may be omitted in some cases. CLINICAL DECISIONS SHOULD BE BASED ON THE PRIMARY CLINICAL RECORDS. [facility] [employer], [facility]. provides no warranty or guarantee of the accuracy or completeness of information in this document.
[2025-08-04 11:30] LABS: AST(SGOT) 104 U/L (<=37); Alanine Aminotransfer ALT/SGPT 79 U/L (<=46); Albumin, Serum 4.2 g/dL (3.5-5.0); Alkaline Phosphatase 99 U/L (40-129); Anion Gap 13 (5-15); BUN 7 mg/dL (4-19); BUN/Creat Ratio 9.3 RATIO (10-20); Calcium,Total 9.7 mg/dL (7.6-11.0); Carbon Dioxide 25.9 mmol/L (21.0-32.0); Chloride 101 mmol/L (98-108); Cholesterol 205 mg/dL (<=200); Globulin 2.7 g/dL (2.2-4.2); Glucose 147 mg/dL (70-99); Low Density Lipoprotein Calc. 119 mg/dL; PSA,Total - Annual Screen 1.50 ng/mL (0.02-4.00); Potassium 4.5 mmol/L (3.3-5.1); Triglycerides 91 mg/dL; Very Low Density Lipoprotein 18 mg/dL (5-40); cholesterol:hdl ratio screen 3.03
== END | disposition home or self-care (01) ==
LOC: LAB 09:16
PROVIDERS: PCP Family Medicine; Referring Provider Nurse Practitioner Family; Visit Provider Nurse Practitioner Family
DX: E66.9 Obesity, unspecified (principal); E11.9 Type 2 diabetes mellitus without complications; Z12.5 Encounter for screening for malignant neoplasm of prostate
CPT/HCPCS: 36415; 80053; 80061; 83036; 84153; G0103

== ENCOUNTER → 2025-09-06 | Outpatient (CLI) | payer BC, SELFPAY ==
[2025-09-06 13:08] LABS: AST(SGOT) 47 U/L (<=37); Alanine Aminotransfer ALT/SGPT 46 U/L (<=46); Albumin, Serum 4.2 g/dL (3.5-5.0); Alkaline Phosphatase 84 U/L (40-129); Anion Gap 11 (5-15); BUN 9 mg/dL (4-19); BUN/Creat Ratio 11.0 RATIO (10-20); Calcium,Total 9.9 mg/dL (7.6-11.0); Carbon Dioxide 27.3 mmol/L (21.0-32.0); Chloride 100 mmol/L (98-108); Globulin 2.4 g/dL (2.2-4.2); Glucose 154 mg/dL (70-99); Potassium 4.4 mmol/L (3.3-5.1)
== END | disposition home or self-care (01) ==
LOC: MFPLAB 10:27
PROVIDERS: PCP Family Medicine; Visit Provider Family Medicine
DX: R79.89 Other specified abnormal findings of blood chemistry (principal)
CPT/HCPCS: 36415; 80053; 84403